=== PATIENT | female | born 1935 | race Caucasian/White ===

== ENCOUNTER 2016-08-05 21:25 | Inpatient (IN) | payer MEDICARE, OTHER ==
[~2016-08-05] VITALS: Ht 157.5 cm; Wt 58.1 kg
[2016-08-05 21:38] LABS: BASOPHILS % (AUTO) 0 % (0-10); EOSINOPHILS # (AUTO) 0.2 10^3/uL (0.0-0.3); EOSINOPHILS % (AUTO) 1 % (0-10); LYMPHOCYTES # (AUTO) 1.8 X 10^3 (1.0-4.0); LYMPHOCYTES % (AUTO) 14 % (12-44); MEAN CORPUSCULAR HEMOGLOBIN 28 PG (25-34); MEAN CORPUSCULAR HGB CONC 31 G/DL (32-36); MEAN CORPUSCULAR VOLUME 89 FL (80-99); MEAN PLATELET VOLUME 9.2 FL (7.4-10.4); MONOCYTES # (AUTO) 1.3 X 10^3 (0.0-1.0); MONOCYTES % (AUTO) 10 % (0-12); NEUTROPHILS # (AUTO) 9.2 X 10^3 (1.8-7.8); NEUTROPHILS % (AUTO) 74 % (42-75); PLATELET COUNT 367 10^3/uL (130-400); RED BLOOD COUNT 3.44 10^6/uL (4.35-5.85); RED CELL DISTRIBUTION WIDTH 16.9 % (10.0-14.5); WHITE BLOOD COUNT 12.5 10^3/uL (4.3-11.0)
[2016-08-05] MEDS ORDERED: TRAM50TA2 PO (21:44)
[2016-08-05 21:48] LABS: INR 1.1 (0.8-1.4); PROTHROMBIN TIME PATIENT 14.3 SEC (12.2-14.7)
[2016-08-05 21:56] LABS: ALANINE AMINOTRANSFERASE 7 U/L (0-55); ALBUMIN 2.8 G/DL (3.2-4.5); ANION GAP 8 MMOL/L (5-14); ASPARTATE AMINO TRANSFERASE 19 U/L (5-34); BILIRUBIN,TOTAL 0.5 MG/DL (0.1-1.0); BLOOD UREA NITROGEN 15 MG/DL (7-18); BUN/CREATININE RATIO 24; CALCIUM 8.4 MG/DL (8.5-10.1); CARBON DIOXIDE 25 MMOL/L (21-32); CHLORIDE 102 MMOL/L (98-107); CREATININE SERUM 0.62 MG/DL (0.60-1.30); GFR ESTIMATED > 60; GLUCOSE 98 MG/DL (70-105); POTASSIUM 4.1 MMOL/L (3.6-5.0); SODIUM 135 MMOL/L (135-145); TOTAL PROTEIN 5.2 G/DL (6.4-8.2)
--- NOTE | 2016-08-05 22:00 | ED Lower Extremity ---
General Chief Complaint: Lower Extremity Stated Complaint: FALL Nursing Triage Note: pt reports she was standing and took a wrong step and felt something pop in her l hip. pt reports staff helped lower her to the floor and denies falling or any other injury. Nursing Sepsis Screen: No Definite Risk Source: patient, EMS History of Present Illness Time seen by provider: 21:24 Initial Comments PT ARRIVES VIA EMS FROM [facility] PT STATES SHE WAS STANDING AND STARTED TO STEP AND FELT HER LEFT HIP POP--DID NOT FALL OR HAVE ANY TRAUMA OF ANY KIND, AND WAS ASSISTED TO THE FLOOR BY STAFF. PT HAS HAD CHRONIC PROBLEMS WITH LEFT HIP "BURSITIS", AND HAS HAD SEVERAL STEROID SHOTS IN THIS HIP--LAST ONE WAS 4 MONTHS AGO PT HAS PERIPHERAL NEUROPATHY WELL--STATES SHE IS NOT DIABETIC. PT RECENTLY HAD CAST REMOVED FROM RIGHT FOREARM AFTER A FRACTURE--WAS SEEN BY DR. LEON AT [facility] GAVE FENTANYL 50 MCG IM IN LEFT UPPER ARM. PCP: CALEB GARZA MO--DR. PIÑA IS HER PHYSICIAN AT [facility] Allergies and Home Medications Allergies Coded Allergies: strawberry (Verified Allergy, Unknown, 08/05/16) Home Medications Tramadol HCl 50 Mg Tablet, 50 MG PO, (Reported) Constitutional: no symptoms reported Respiratory: no symptoms reported Cardiovascular: no symptoms reported Gastrointestinal: no symptoms reported Genitourinary: no symptoms reported Musculoskeletal: see HPI Skin: no symptoms reported Psychiatric/Neurological: Pre-Existing Deficit (NEUROPATHY IN FEET) Past Kozjwsk-Ijtryf-Qjooin Hx Patient Social History Alcohol Use: Denies Use Recreational Drug Use: No Smoking Status: Former Smoker Type Used: Cigarettes 2nd Hand Smoke Exposure: No Recent Foreign Travel: No Contact w/Someone Who Travel: No Recent Infectious Disease Expo: No Recent Hopitalizations: No Immunizations Up To Date Date of Pneumonia Vaccine: Feb 18, 2016 Date of Influenza Vaccine: Feb 18, 2016 Seasonal Allergies Seasonal Allergies: No Surgeries HX Surgeries: Yes (LEFT LUNG BX/ RESECTION ) Surgeries: Appendectomy, Gallbladder, Hysterectomy Respiratory Hx Respiratory Disorders: Yes (LEFT LUNG CANCER--S/P SURGERY ONLY. 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 LEON AT [facility] AND BY NEUROSURGEON FOR COMPRESSION FRACTURE IN SPINE. ) Musculoskeletal Disorders: Osteoporosis, Arthritis, Fractures Endocrine Hx Endocrine Disorders: Yes Endocrine Disorders: Hypothyroidsim HEENT HX ENT Disorders: No Cancer Hx Cancer: Yes (LEFT LUNG CANCER-S/P SURGERY ONLY, NO CHEMO OR RADIATION--SEES ONCOLOGY AT [facility]) Cancer: Lung Psychosocial Hx Psychiatric Problems: No Integumentary HX Skin/Integumentary Disorder: No Blood Transfusions Hx Blood Disorders: No Physical Exam Vital Signs Vital Sign - Last 12Hours 08/05/16 21:30 Temp 97.4 Pulse 85 Resp 18 B/P (MAP) 138/72 Pulse Ox 95 O2 Delivery Nasal Cannula O2 Flow Rate 2.00 Capillary Refill : Less Than 3 Seconds General Appearance: no apparent distress, thin HEENT: PERRL/EOMI Neck: non-tender, full range of motion, supple, normal inspection Cardiovascular: regular rate, rhythm, no edema, no JVD, no murmur Respiratory: chest non-tender, normal breath sounds, no respiratory distress, no accessory muscle use Gastrointestinal: normal bowel sounds, non tender, soft Back: no CVA tenderness, no vertebral tenderness Hips: left hip bone tenderness, left hip other (LEFT LEG SHORTENED AND EXTERNALLY ROTATED. ) Legs: left leg other ( ABOVE) Knees: left knee normal inspection Ankles: left ankle normal inspection Feet: left foot normal inspection, left foot other (PULSES INTACT. SENSATION IS NORMAL BASELINE, PER PT--NUEROPATHY. ) Neurologic/Tendon: normal motor functions, normal tendon functions, other ( NEUROPATHY TO FEET BILATERALLY) Neurologic/Psychiatric: bead wire taper II-XII nml as tested, alert, normal mood/affect, oriented x 3 Skin: normal color, warm/dry Progress/Results/Core Measures Results/Orders Lab Results Laboratory Tests Test 08/05/16 21:30 Range/Units White Blood Count 12.5 H 4.3-11.0 10^3/uL Red Blood Count 3.44 L 4.35-5.85 10^6/uL Hemoglobin 9.6 L 11.5-16.0 G/DL Hematocrit 31 L 35-52 % Mean Corpuscular Volume 89 80-99 FL Mean Corpuscular Hemoglobin 28 25-34 PG Mean Corpuscular Hemoglobin Concent 31 L 32-36 G/DL Red Cell Distribution Width 16.9 H 10.0-14.5 % Platelet Count 367 130-400 10^3/uL Mean Platelet Volume 9.2 7.4-10.4 FL Neutrophils (%) (Auto) 74 42-75 % Lymphocytes (%) (Auto) 14 12-44 % Monocytes (%) (Auto) 10 0-12 % Eosinophils (%) (Auto) 1 0-10 % Basophils (%) (Auto) 0 0-10 % Neutrophils # (Auto) 9.2 H 1.8-7.8 X 10^3 Lymphocytes # (Auto) 1.8 1.0-4.0 X 10^3 Monocytes # (Auto) 1.3 H 0.0-1.0 X 10^3 Eosinophils # (Auto) 0.2 0.0-0.3 10^3/uL Basophils # (Auto) 0.0 0.0-0.1 10^3/uL Prothrombin Time 14.3 12.2-14.7 SEC INR Comment 1.1 0.8-1.4 Activated Partial Thromboplast Time 33 24-35 SEC Sodium Level 135 135-145 MMOL/L Potassium Level 4.1 3.6-5.0 MMOL/L Chloride Level 102 98-107 MMOL/L Carbon Dioxide Level 25 21-32 MMOL/L Anion Gap 8 5-14 MMOL/L Blood Urea Nitrogen 15 7-18 MG/DL Creatinine 0.62 0.60-1.30 MG/DL Estimat Glomerular Filtration Rate > 60 BUN/Creatinine Ratio 24 Glucose Level 98 70-105 MG/DL Calcium Level 8.4 L 8.5-10.1 MG/DL Total Bilirubin 0.5 0.1-1.0 MG/DL Aspartate Amino Transf (AST/SGOT) 19 5-34 U/L Alanine Aminotransferase (ALT/SGPT) 7 0-55 U/L Alkaline Phosphatase 260 H 40-136 U/L Total Protein 5.2 L 6.4-8.2 G/DL Albumin 2.8 L 3.2-4.5 G/DL My Orders Orders - BEKA MYERS DO Saline Lock/Iv-Start (08/05/16 21:28) Cbc With Automated Diff (08/05/16 21:28) Comprehensive Metabolic Panel (08/05/16 21:28) Protime With Inr (08/05/16 21:28) Partial Thromboplastin Time (08/05/16 21:28) Chest 1 View, Ap/Pa Only (08/05/16 21:28) Pelvis (08/05/16 21:28) Hip, Left, 2 Views (08/05/16 21:28) Catheter(Urinary) Insert & Ass 03,15 (08/05/16 22:15) Fentanyl Injection (Sublimaze Injection (08/05/16 22:15) Saline Lock/Iv-Start (08/05/16 22:15) Ns Iv 1000 Ml (Sodium Chloride 0.9%) (08/05/16 22:15) Medications Given in ED Current Medications Medications Dose Ordered Sig/Martin Route Start Time Stop Time Status Last Admin Dose Admin Sodium Chloride 1,000 ml @ 0 mls/hr Q0M ONCE IV 08/05/16 22:15 08/05/16 22:17 DC 08/05/16 22:26 0 MLS/HR Vital Signs/I&O Vital Sign - Last 12Hours 08/05/16 21:30 Temp 97.4 Pulse 85 Resp 18 B/P (MAP) 138/72 Pulse Ox 95 O2 Delivery Nasal Cannula O2 Flow Rate 2.00 Blood Pressure Mean: 94 Progress Note : Progress Note NO DETERIORATION IN PT'S CONDITION DURING ER STAY PT WANTS TO STAY HERE, OPPOSED TO BEING TRANSFERRED TO [facility], WHERE SHE HAS HAD RECENT ORTHOPEDIC / NEUROSURGERY SERVICES AND OTHER SPECIALTY SERVICES Diagnostic Imaging Comments XRAYS LEFT HIP AND PELVIS--SUB-TROCHANTERIC FX WITH SEVERE DEGENERATIVE CHANGES OF FEMORAL HEAD. CXR--NO ACUTE PROCESS, Reviewed: Reviewed by Me Departure Communication Progress Notes 2203--SPOKE WITH DR. MOON, HE WILL REVIEW FILMS AND CALL ME BACK 2224--DR. MOON CALLED BACK. HE WILL TAKE PT TO SURGERY TOMORROW. 2232--SPOKE WITH DR. ESCOBAR, HOSPITALIST, FOR CONSULT/CO-MANAGEMENT Impression Impression: Primary Impression: Closed subtrochanteric fracture of left femur Additional Impressions: Lung cancer Peripheral neuropathy Ischemic heart disease Anemia Pathological fracture Disposition: ADMITTED INPATIENT Condition: Stable Decision to Admit Reason: Admit from ER (General) Decision to Admit/Date: Aug 05, 2016 Time/Decision to Admit Time: 22:30 Departure-Patient Inst. Referrals: VIRGILIO PIÑA MD (PCP/Family) Primary Care Physician BEKA MYERS DO Aug 05, 2016 21:59
[2016-08-05] MEDS ORDERED: NS IV 1000 ML 1,000 ML IV ONE (22:15)
[2016-08-05] MEDS ORDERED: fentaNYL INJECTION 100 MCG/2 ML AMP IVP STA (22:15)
[2016-08-05] MEDS ORDERED: morphine INJ 10 MG/ML 1ML (SYR OR VIAL) IVP STA (22:50)
[2016-08-06] VITALS (8 sets, daily range): BP systolic 78–156; BP diastolic 53–85
[2016-08-06] MEDS ORDERED: fentaNYL INJECTION 100 MCG/2 ML AMP IVP PRN (00:15)
[2016-08-06] MEDS ORDERED: D5 1/2 NS 1000 ML IV SOLUTION 1,000 ML IV ONE (00:17)
[2016-08-06] MEDS: D5 1/2 NS 1000 ML IV SOLUTION 1,000 ML IV SCH ×3 (00:23→20:30)
[2016-08-06] MEDS: fentaNYL INJECTION 100 MCG/2 ML AMP IVP PRN ×4 (00:24→14:59)
[2016-08-06] MEDS ORDERED: morphine INJ 4 MG/ML 1 ML (VIAL/SYRINGE) IV PRN (00:30)
[2016-08-06 05:47] LABS: BASOPHILS % (AUTO) 0 % (0-10); EOSINOPHILS % (AUTO) 1 % (0-10); LYMPHOCYTES # (AUTO) 1.5 X 10^3 (1.0-4.0); LYMPHOCYTES % (AUTO) 35 % (12-44); MEAN CORPUSCULAR HEMOGLOBIN 28 PG (25-34); MEAN CORPUSCULAR HGB CONC 31 G/DL (32-36); MEAN CORPUSCULAR VOLUME 90 FL (80-99); MEAN PLATELET VOLUME 10.7 FL (7.4-10.4); MONOCYTES # (AUTO) 0.3 X 10^3 (0.0-1.0); MONOCYTES % (AUTO) 6 % (0-12); NEUTROPHILS # (AUTO) 2.5 X 10^3 (1.8-7.8); NEUTROPHILS % (AUTO) 58 % (42-75); RED BLOOD COUNT 3.49 10^6/uL (4.35-5.85); RED CELL DISTRIBUTION WIDTH 16.7 % (10.0-14.5); WHITE BLOOD COUNT 4.2 10^3/uL (4.3-11.0)
[2016-08-06 05:53] LABS: PLATELET COUNT 117 10^3/uL (130-400)
[2016-08-06 06:07] LABS: ALANINE AMINOTRANSFERASE 8 U/L (0-55); ALBUMIN 2.6 G/DL (3.2-4.5); ANION GAP 10 MMOL/L (5-14); ASPARTATE AMINO TRANSFERASE 24 U/L (5-34); BILIRUBIN,TOTAL 0.5 MG/DL (0.1-1.0); BLOOD UREA NITROGEN 11 MG/DL (7-18); BUN/CREATININE RATIO 20; CALCIUM 7.6 MG/DL (8.5-10.1); CARBON DIOXIDE 20 MMOL/L (21-32); CHLORIDE 106 MMOL/L (98-107); CREATININE SERUM 0.54 MG/DL (0.60-1.30); GFR ESTIMATED > 60; GLUCOSE 121 MG/DL (70-105); SODIUM 136 MMOL/L (135-145); TOTAL PROTEIN 4.7 G/DL (6.4-8.2)
--- NOTE | 2016-08-06 07:43 | Diagnostic Imaging Report ---
INDICATION: Fell with left hip pain. FINDINGS: Two views of the left hip demonstrate a subtrochanteric fracture of the left hip with severe degenerative changes of the joint. IMPRESSION: There is a subtrochanteric fracture of left hip with severe degenerative changes of the joint space. Dictated by: Dictated on workstation # [id number]
--- NOTE | 2016-08-06 07:45 | Diagnostic Imaging Report ---
INDICATION: Fell, complains of left hip pain. COMPARISON STUDIES: None. FINDINGS: Frontal view of the chest demonstrates surgical clips overlying the left hilar region. There is some blunting of left costophrenic angle most likely due to small pleural effusion. This could also be due to postoperative scarring. The heart size and vascularity are normal. IMPRESSION: There is blunting of left costophrenic angle which could be due to small pleural effusion versus postoperative scarring. Dictated by: Dictated on workstation # [id number]
--- NOTE | 2016-08-06 07:47 | Diagnostic Imaging Report ---
INDICATION: Fell, left hip pain. FINDINGS: AP view of the pelvis demonstrates a subtrochanteric fracture of the left hip with severe degenerative changes of the joint space. Previous laminectomy changes present at L4 and L5. No diastases seen. IMPRESSION: There is a subtrochanteric fracture of the left hip with severe degenerative changes. Dictated by: Dictated on workstation # [id number]
[2016-08-06] MEDS ORDERED: NFBIOT1000 PO (09:56)
[2016-08-06] MEDS ORDERED: BETA1TAB12 PO (09:56)
[2016-08-06] MEDS ORDERED: GARL10002 PO (09:56)
[2016-08-06] MEDS ORDERED: DOCU-143 PO (09:56)
[2016-08-06] MEDS ORDERED: ESOM20CA PO (09:56)
[2016-08-06] MEDS ORDERED: ASPI-983 PO (09:56)
[2016-08-06] MEDS ORDERED: LEVO50TA6 PO (09:56)
[2016-08-06] MEDS ORDERED: CLOP75TA69 PO (09:56)
[2016-08-06] MEDS ORDERED: VITA400C60 PO (09:56)
[2016-08-06] MEDS ORDERED: SIMV80TA3 PO (09:56)
[2016-08-06] MEDS ORDERED: CHOL10003 PO (09:56)
[2016-08-06] MEDS ORDERED: LIDO700A6 TP (09:56)
[2016-08-06] MEDS ORDERED: VERA240T98 PO (09:56)
[2016-08-06] MEDS ORDERED: ENAL10TA PO (09:56)
[2016-08-06] MEDS ORDERED: DICL100G18 TP ×2 (09:56→10:00)
[2016-08-06] MEDS ORDERED: HYDR-3731 PO (09:56)
[2016-08-06] MEDS ORDERED: MAG30ORA2 PO (09:56)
[2016-08-06] MEDS ORDERED: TRAM50TA2 PO (09:56)
[2016-08-06] MEDS ORDERED: BISA10SU6 RC (09:56)
[2016-08-06] MEDS ORDERED: OXYB10TA PO (09:56)
--- NOTE | 2016-08-06 10:46 | Consultation-Hospitalist ---
HPI History of Present Illness: HPI/Chief Complaint CC: Left hip fracture HPI: This is a 80yo[address] pt of Dr[address] Jerzy Cote in [place] but now Dr. Jeffers since she has been at [facility] that presented to ER by ambulance after a fall and sustained left hip fracture but she heard her hip snap before the fall which makes this suspicious for lung cancer mets or at the very least osteoporosis. Pt has hx of lung CA and CAD so it is concerning that this could be related to CA process. Patient Interview: Pt states that she moved to [facility] in the middle of May, but states that she has not been there an entire month yet. Pt states that she previously broke her right arm, and took the cast off yesterday in [place]. Upon returning to [place], pt states that her hip popped and she fell. Pt states that she had CA in left lung, and a section was removed in March of 2015. Oncologist is Dr. Fairbanks and she sees him every three months. Pt denies smoking, and quit 28 years ago. 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 Pt's son lives in [place]. Physical exam stable. Scribed by Altaf Weinberg under the direct supervision of Dr. Meyer. Source: patient Exam Limitations: no limitations Date Seen 08/06/16 Attending Physician Maximo Saha John D MD Referring Physician Date of Admission Aug 05, 2016 at 22:30 Home Medications & Allergies Home Medications Reviewed patient Home Medication Reconciliation Form Allergies Allergies Coded Allergies strawberry (Verified Allergy, Unknown, 08/05/16) Past Agfpckk-Lggzya-Jfkajh Hx Patient Social History Marrital Status: Employed/Student: retired Alcohol Use: Denies Use Recreational Drug Use: No Smoking Status: Never a Smoker Type Used: Cigarettes 2nd Hand Smoke Exposure: No Physical Abuse Screen: No Sexual Abuse: No Recent Foreign Travel: No Contact w/other who traveled: No Recent Hopitalizations: No Recent Infectious Disease Expo: No Immunizations Up To Date Date of Pneumonia Vaccine: Feb 18, 2016 Date of Influenza Vaccine: Feb 18, 2016 Seasonal Allergies Seasonal Allergies: No Surgeries HX Surgeries: Yes (LEFT LUNG BX/ RESECTION ) Surgeries: Appendectomy, Gallbladder, Hysterectomy Respiratory Hx Respiratory Disorders: Yes (LEFT LUNG CANCER--S/P SURGERY ONLY. ) Respiratory Disorders: COPD, Pneumonia Cardiovascular Hx Cardiovascular Disorders: Yes (chronic ischemic heart disease) Cardiac Disorders: Coronary Artery Disease, High Cholesterol, Hypertension Neurological Hx Neurological Disorders: Yes Neurological Disorders: Neuropathy, Stroke, TIA Reproductive System : No Genitourinary Hx Genitourinary Disorders: Yes (over active bladder/incontinence) Genitourinary Disorders: Kidney Stones Gastrointestinal Hx Gastrointestinal Disorders: Yes Gastrointestinal Disorders: Gastroesophageal Reflux, Chronic Constipation Musculoskeletal Hx Musculoskeletal Disorders: Yes ("BURSITIS" LEFT HIP; COMPRESSION FRACTURES IN SPINE; GENERALIZED WEAKNESS; RIGHT RADIUS FRACTURE--FOLLOWED BY DR. LEON AT [facility] AND BY NEUROSURGEON FOR COMPRESSION FRACTURE IN SPINE. ) Musculoskeletal Disorders: Osteoporosis, Arthritis, Fractures Endocrine Hx Endocrine Disorders: Yes Endocrine Disorders: Hypothyroidsim HEENT HX ENT Disorders: No HEENT Disorders: Cataract Cancer Hx Cancer: Yes (LEFT LUNG CANCER-S/P SURGERY ONLY, NO CHEMO OR RADIATION--[facility] Cancer: Lung Psychosocial Hx Psychiatric Problems: No Integumentary HX Skin/Integumentary Disorder: No Blood Transfusions Hx Blood Disorders: No Family Medical History Family Hx: Cataracts 19 MOTHER Diabetes mellitus 19 FATHER FH: CHF (congestive heart failure) 19 FATHER 19 MOTHER FH: COPD (chronic obstructive pulmonary disease) 19 FATHER 19 MOTHER Review of Systems Constitutional: see HPI EENTM: no symptoms reported Respiratory: no symptoms reported Cardiovascular: no symptoms reported Gastrointestinal: no symptoms reported Genitourinary: no symptoms reported Musculoskeletal: joint pain Skin: no symptoms reported Psychiatric/Neurological: No Symptoms Reported All Other Systems Reviewed Negative Unless Noted: Yes Physical Exam Physical Exam Vital Signs Vital Sign - Last 12Hours 08/05/16 21:30 Temp 97.4 Pulse 85 Resp 18 B/P (MAP) 138/72 Pulse Ox 95 O2 Delivery Nasal Cannula O2 Flow Rate 2.00 Capillary Refill : Less Than 3 SecondsLess Than 3 Seconds General Appearance: No Apparent Distress, WD/WN, Chronically ill, Thin, Other ( frail, pale) Eyes: Bilateral Eye Normal Inspection, Bilateral Eye PERRL HEENT: PERRL/EOMI, Normal ENT Inspection, Pharynx Normal Neck: Full Range of Motion, Normal Inspection, Non Tender, Supple, Carotid Bruit Respiratory: Chest Non Tender, Lungs Clear, Normal Breath Sounds, No Accessory Muscle Use, No Respiratory Distress, Decreased Breath Sounds Cardiovascular: Regular Rate, Rhythm, No Edema, No Gallop, No JVD, No Murmur, Normal Peripheral Pulses Gastrointestinal: Normal Bowel Sounds, No Organomegaly, No Pulsatile Mass, Non Tender, Soft Back: Normal Inspection, No CVA Tenderness, No Vertebral Tenderness Extremity: Normal Capillary Refill, Normal Inspection, Non Tender, No Calf Tenderness, No Pedal Edema Neurologic/Psychiatric: Alert, Oriented x3, No Motor/Sensory Deficits, Normal Mood/Affect Skin: Normal Color, Warm/Dry Lymphatic: No Adenopathy Results Results/Procedures Lab Laboratory Tests 08/05/16 21:30 08/06/16 05:40 Assessment/Plan Admission Diagnosis Assessment: Status post fall with sustained hip fracture need of repair today History of left lung cancer managed by oncology in [place] every 3 months in remission after lobectomy in 2014 Overall debility since right arm fracture Oxygen required COPD Previous smoker TIA 03/26 on Plavix Assessment and Plan Plan: Dr. Saha consult for repair. Dr. Yuen consult Dr. Bonilla consult SCDs for DVT prophylaxis Check labs in a.m. Incentive spirometer Nebulizer treatments Oxygen supplementation Clinical Quality Measures DVT/VTE Risk/Contraindication: Risk Factor Score Per Nursin RFS Level Per Nursing on Admit: 4+=Very High ROBIN MEYER DO Aug 06, 2016 10:46
--- NOTE | 2016-08-06 10:54 | Occ Therapy Progress Note ---
Therapy Progress Note Order received for OT eval and treat. Chart review completed. Pt admitted with left hip fracture. Will be going to surgery today. Will require new orders to initiate therapy post surgery. Discussed with ZA. SINCERE DELGADO OT Aug 06, 2016 10:54
[2016-08-06] MEDS ORDERED: BISACODYL 10 MG SUPP (DULCOLAX) RC PRN (11:30)
[2016-08-06] MEDS ORDERED: ANTACID SUSP 30 ML UDC (MYLANTA) PO PRN (11:30)
[2016-08-06] MEDS: DICLOFENAC 1% GEL 100 GM (VOLTAREN) TUBE TP SCH ×2 (12:14→21:00)
[2016-08-06] MEDS: RT-ALBUTEROL/IPRATROPIUM 3 ML (DUONEB) VIAL INH SCH ×3 (14:37→20:09)
[2016-08-06] MEDS ORDERED: morphine INJ 10 MG/ML 1ML (SYR OR VIAL) ONE (15:13)
[2016-08-06] MEDS ORDERED: ONDANSETRON 4 MG/2 ML (SDV) Z0FRAN ONE ×2 (15:14→16:44)
[2016-08-06] MEDS ORDERED: fentaNYL INJECTION 100 MCG/2 ML AMP ONE ×2 (15:14→16:45)
[2016-08-06] MEDS ORDERED: morphine INJ 10 MG/ML 1ML (SYR OR VIAL) IV PRN (15:30)
[2016-08-06] MEDS ORDERED: PROMETHAZINE INJ 25 MG/ML (PHENERGAN) AMP IV PRN (15:30)
[2016-08-06] MEDS ORDERED: ONDANSETRON 4 MG/2 ML (SDV) Z0FRAN IV PRN (15:30)
[2016-08-06] MEDS ORDERED: FAMOTIDINE 20MG/2ML IV (PEPCID) IV NR (15:30)
--- NOTE | 2016-08-06 15:54 | Consultation-Cardiology ---
HPI-Cardiology Cardiology Consultation: Date of Consultation 08/06/16 Date of Admission 08-06-16 Attending Physician Maximo Saha DO Admitting Physician Murtaza Jeffers MD Consulting Physician Deena Bonilla MD HPI: Chief Complaint: Pre-op Eval Ms. Ocasio is a 80 year old female who has been admitted to [facility] from [facility] where she resides. She states she was getting up to use the commode earlier today, when she turned to sit she felt her left hip pop. She reports the care provider with her at the time lowered her to the floor. She denies any c/o CP, SOB, palpitations, syncope, near syncope or LE edema. She states she quit smoking 28 years ago. She is reporting s/o left hip discomfort. No family is at the bedside at the time of this assessment/ Review of Systems-Cardiology Review of Systems Constitutional: As described under HPI Eyes: No blurred vision, No drainage, No pain, No vision change Ears/Nose/Throat: No ear discharge, No ear pain, No nasal drainage, No ulcerations Respiratory: As described under HPI Cardiovascular: As described under HPI Gastrointestinal: No constipation, No diarrhea, No nausea, No vomiting, No stool coloration changes Genitourinary: No dysuria, No discharge, No frequency, No hematuria, No urgency Musculoskeletal: other (Left hip pain) Skin: No rash, No skin related problems, No ulcerations Psychiatric/Neurological: No anxiety, No depression, No focal weakness, No seizure, No syncope Hematologic: No bleeding abnormalities All Other Systems Reviewed Negative Unless Noted: Yes PGU-Oazoxu-Favjhb Hx Patient Social History Marrital Status: Employed/Student: retired Alcohol Use: Denies Use Recreational Drug Use: No Smoking Status: Never a Smoker Type Used: Cigarettes 2nd Hand Smoke Exposure: No Recent Foreign Travel: No Recent Infectious Disease Expo: No Physical Abuse Screen: No Sexual Abuse: No Immunizations Up To Date Date of Pneumonia Vaccine: Feb 18, 2016 Date of Influenza Vaccine: Feb 18, 2016 Past Medical History PMH As described under Assessment. Family Medical History Family Medical History: She reports her mother had CHF and her father had COPD. No reported h/o premature CAD or SCD. Family History: Cataracts 19 MOTHER Diabetes mellitus 19 FATHER FH: CHF (congestive heart failure) 19 FATHER 19 MOTHER FH: COPD (chronic obstructive pulmonary disease) 19 FATHER 19 MOTHER Allergies and Home Medications Allergies Coded Allergies: latex (Verified Allergy, Mild, RASH, 08/06/16) strawberry (Verified Allergy, Unknown, 08/05/16) Home Medications Aspirin 81 Mg Tablet.dr, 81 MG PO HS, (Reported) Beta-Carotene(A) W-C & E/Min 1 Each Tablet, 1 TAB PO HS, (Reported) Biotin 1,000 Mcg Tablet, 1,000 MCG PO HS, (Reported) Bisacodyl 10 Mg Supp.rect, 10 MG RC DAILY PRN for CONSTIPATION, (Reported) Cholecalciferol (Vitamin D3) 1,000 Unit Tablet, 1,000 UNIT PO HS, (Reported) Clopidogrel Bisulfate 75 Mg Tablet, 75 MG PO DAILY, (Reported) Diclofenac Sodium 100 Gm Gel..gram., TP TID, (Reported) LOWER EXTREMETIES: 4G 3X DAILY MAX 16G PER JOINT PER DAY UPPER EXTREMETIES: 2G 3X DAILY MAX 8G PER JOINT PER DAY TOTAL BODY DOSE MAX 32G/DAY Docusate Sodium 100 Mg Capsule, 100 MG PO BID, (Reported) Enalapril Maleate 10 Mg Tablet, 10 MG PO DAILY, (Reported) Esomeprazole Magnesium 20 Mg Capsule.dr, 20 MG PO BID, (Reported) Garlic 1,000 Mg Capsule, 1,000 MG PO HS, (Reported) Hydrocodone/Acetaminophen 1 Each Tablet, 1 TAB PO Q6H PRN for PAIN, (Reported) Levothyroxine Sodium 50 Mcg Tablet, 50 MCG PO DAILY, (Reported) Lidocaine 700 Mg Adh..patch, 3 PATCH TP DAILY, (Reported) APPLY TO LEFT SHOULDER, RIGHT SHOULDER, AND T5-T12/THORACIC SPINE REMOVE AT 1930 Mag Hydrox/Al Hydrox/Simeth 30 Ml Oral.susp, 15 ML PO Q4H PRN for INDIGESTION, ( Reported) Oxybutynin Chloride 10 Mg Tab.er.24, 20 MG PO DAILY, (Reported) TAKES 2 (10MG) TABLETS Simvastatin 80 Mg Tablet, 80 MG PO HS, (Reported) Tramadol HCl 50 Mg Tablet, 50 MG PO Q12H PRN for PAIN, (Reported) Verapamil HCl 240 Mg Tablet.er, 240 MG PO BID, (Reported) Vitamin E Acetate 400 Unit Capsule, 400 UNIT PO HS, (Reported) Physical Exam-Cardiology Physical Exam Vital Signs/I&O Vital Sign - Last 12Hours 08/06/16 08/06/16 08/06/16 08/06/16 08:00 09:00 12:00 15:05 Temp 98.4 98.0 Pulse 68 84 Resp 18 16 B/P (MAP) 131/77 156/85 Pulse Ox 95 91 91 O2 Delivery Nasal Cannula Nasal Cannula Nasal Cannula O2 Flow Rate 2.00 2.00 2.00 2.00 08/06/16 16:00 Temp 97.9 Pulse 89 Resp 18 B/P (MAP) 149/82 Pulse Ox 99 O2 Delivery Nasal Cannula O2 Flow Rate 2.00 Intake and Output 08/06/16 00:00 Intake Total 1000 ml Balance 1000 ml Capillary Refill : Less Than 3 SecondsLess Than 3 Seconds Constitutional: AAO x 3 HEENT: PERRL, No discharge, hearing is well preserved, oral hygience is good, No ulceration, No xanthelasmas are seen Neck: No carotid bruit, carotid pulses are 2 + bilaterally Respiratory: No accessory muscle use, No respiratory distress, chest expansion is symmetric, lungs clear to auscultation Cardiovascular: regular rate-rhythm, No JVD, S1 and S2 Gastrointestinal: No tender, soft, round, audible bowel sounds, No spleenomegaly Rectal: deferred Extremities: No clubbing, No cyanosis, No significant edema Neurologic/Psychiatric: alert, oriented x 3, grossly intact (Left leg was not manipulated d/t hip fracture) Skin: No rash, No ulcerations Data Review Labs Laboratory Tests 08/05/16 21:30: White Blood Count 12.5H, Red Blood Count 3.44L, Hemoglobin 9.6L, Hematocrit 31L , Mean Corpuscular Volume 89, Mean Corpuscular Hemoglobin 28, Mean Corpuscular Hemoglobin Concent 31L, Red Cell Distribution Width 16.9H, Platelet Count 367, Mean Platelet Volume 9.2, Neutrophils (%) (Auto) 74, Lymphocytes (%) (Auto) 14, Monocytes (%) (Auto) 10, Eosinophils (%) (Auto) 1, Basophils (%) (Auto) 0, Neutrophils # (Auto) 9.2H, Lymphocytes # (Auto) 1.8, Monocytes # (Auto) 1.3H, Eosinophils # (Auto) 0.2, Basophils # (Auto) 0.0, Prothrombin Time 14.3, INR Comment 1.1, Activated Partial Thromboplast Time 33, Sodium Level 135, Potassium Level 4.1, Chloride Level 102, Carbon Dioxide Level 25, Anion Gap 8, Blood Urea Nitrogen 15, Creatinine 0.62, Estimat Glomerular Filtration Rate > 60 , BUN/Creatinine Ratio 24, Glucose Level 98, Calcium Level 8.4L, Total Bilirubin 0.5, Aspartate Amino Transf (AST/SGOT) 19, Alanine Aminotransferase ( ALT/SGPT) 7, Alkaline Phosphatase 260H, Total Protein 5.2L, Albumin 2.8L 08/06/16 05:40: White Blood Count 4.2L, Red Blood Count 3.49L, Hemoglobin 9.8L, Hematocrit 31L, Mean Corpuscular Volume 90, Mean Corpuscular Hemoglobin 28, Mean Corpuscular Hemoglobin Concent 31L, Red Cell Distribution Width 16.7H, Platelet Count 117L, Mean Platelet Volume 10.7H, Neutrophils (%) (Auto) 58, Lymphocytes (%) (Auto) 35 , Monocytes (%) (Auto) 6, Eosinophils (%) (Auto) 1, Basophils (%) (Auto) 0, Neutrophils # (Auto) 2.5, Lymphocytes # (Auto) 1.5, Monocytes # (Auto) 0.3, Eosinophils # (Auto) 0.0, Basophils # (Auto) 0.0, Sodium Level 136, Potassium Level 5.0, Chloride Level 106, Carbon Dioxide Level 20L, Anion Gap 10, Blood Urea Nitrogen 11, Creatinine 0.54L, Estimat Glomerular Filtration Rate > 60, BUN /Creatinine Ratio 20, Glucose Level 121H, Calcium Level 7.6L, Total Bilirubin 0.5, Aspartate Amino Transf (AST/SGOT) 24, Alanine Aminotransferase (ALT/SGPT) 8 , Alkaline Phosphatase 270H, Total Protein 4.7L, Albumin 2.6L Radiology NAME: ARMANDO OCASIO [facility] REC#: [id number] PT STATUS: ADM IN : 1935 PHYSICIAN: BEKA MYERS DO ADMIT DATE: 08/05/16 Signed Date of Exam: 08/05/16 CHEST 1 VIEW, AP/PA ONLY INDICATION: Fell, complains of left hip pain. COMPARISON STUDIES: None. FINDINGS: Frontal view of the chest demonstrates surgical clips overlying the left hilar region. There is some blunting of left costophrenic angle most likely due to small pleural effusion. This could also be due to postoperative scarring. The heart size and vascularity are normal. IMPRESSION: There is blunting of left costophrenic angle which could be due to small pleural effusion versus postoperative scarring. Dictated by: Dictated on workstation # [id number] Dict: 08/06/16 0741 Trans: 08/06/16 1055 [place] [id number] Interpreted by: VERONICA HOWARD MD Electronically signed by:VERONICA HOWARD MD 08/06/16 1055 NAME: ARMANDO OCASIO [facility] REC#: [id number] PT STATUS: ADM IN : 1935 PHYSICIAN: BEKA MYERS DO ADMIT DATE: 08/05/16 Signed Date of Exam: 08/05/16 HIP, LEFT, 2 VIEWS INDICATION: Fell with left hip pain. FINDINGS: Two views of the left hip demonstrate a subtrochanteric fracture of the left hip with severe degenerative changes of the joint. IMPRESSION: There is a subtrochanteric fracture of left hip with severe degenerative changes of the joint space. Dictated by: Dictated on workstation # [id number] Dict: 08/06/16 0740 Trans: 08/06/16 1055 [facility] [id number] Interpreted by: VERONICA HOWARD MD Electronically signed by:VERONICA HOWARD MD 08/06/16 1055 A/P-Cardiology Assessment/Admission Diagnosis Spontaneous left hip fracture on 08-06-16 - awaiting surgery Reports h/o "mini-stroke" in March 2016 diagnosed in [place] - details unknown Hypertension HLP - statin tx Reports h/o left lung cancer which was treated with wedge resection at [facility] in [place], [place] in 2014 Previous h/o tobaccoism - quit 28 years ago per pt Hypothyroidism - replacement tx Dementia Discussion and Recomendations Pre-op evaluation prior to undergoing left hip repair following spontaneous fracture. There is no family at the bedside at this time. She reports she had lung cancer which was treated with a wedge resection at [facility] in [place], [place]. Chart review shows "ischemic heart disease", however patient does not report any cardiac issues other than high blood pressure and high cholesterol. We will try to obtain records from [facility]. EKG today. Further recommendations will be based on her hospital course. Surgical risk we be determined per Dr. Bonilla after he has evaluated her. We would like to thank the Hospitalist service for this consult. This consult is being scribed by Nunu Thompson APRN on behalf of Dr. Bonilla after discussion regarding plan of care. Clinical Quality Measures DVT/VTE Risk/Contraindication: Risk Factor Score Per Nursin RFS Level Per Nursing on Admit: 4+=Very High Physician Assessment Physician Assessment I came to see the patient shortly after her ECG had been completed, but Anesthesiology has already taken the patient and the ECG to the OR. I am unable to provide an opinion at this time. I did call Mark (the UNDERGROUND ROOF BOLTER on thd case) spoke with him personally, and offered my evaluation, but he is comfortable with their own eval and doesn't feel that cardiac eval is needed. PADDY THOMPSON Aug 06, 2016 15:54 DEENA BONILLA MD [facility] Aug 06, 2016 17:44
[2016-08-06] MEDS ORDERED: LIDOCAINE PF 2% 10 ML (XYLOCAINE) AMP ONE (16:45)
[2016-08-06] MEDS ORDERED: proPOfol 200 MG/20 ML (DIPRIVAN) VIAL IV ONE (16:45)
[2016-08-06] MEDS ORDERED: DEXAMETHASONE PF 10 MG/ML (DECADRON) VIAL ONE (16:45)
[2016-08-06] MEDS ORDERED: MIDAZOLAM 2 MG/2 ML (VERSED) VIAL ONE (16:45)
[2016-08-06] MEDS ORDERED: LACTATED RINGERS 1,000 ML IV ONE ×2 (16:50→19:05)
[2016-08-06] MEDS ORDERED: ONDANSETRON 4 MG/2 ML (SDV) Z0FRAN IVP PRN (17:30)
[2016-08-06] MEDS ORDERED: BISACODYL 10 MG SUPP (DULCOLAX) PR PRN (17:30)
[2016-08-06] MEDS ORDERED: PROMETHAZINE INJ 25 MG/ML (PHENERGAN) AMP IVP PRN (17:30)
[2016-08-06] MEDS ORDERED: ceFAZolin 2 GM/50 ML NS 50 ML IV SCH (17:30)
[2016-08-06] MEDS: LACTATED RINGERS 1,000 ML IV PRN ×2 (17:33→19:40)
[2016-08-06] MEDS ORDERED: ceFAZolin 2 GM/50 ML NS 50 ML IV NR (18:00)
[2016-08-06] MEDS ORDERED: NEO/POLY/BACI (NEOSPORIN) OPHTH OINT 3.5 GM ONE (18:02)
[2016-08-06] MEDS ORDERED: NEO/POLY/BAC (NEOSPORIN) OINT 15 GM TUBE ONE (18:03)
[2016-08-06] MEDS ORDERED: SEVOFLURANE (ULTANE) 15 ML INHAL SOLN ONE ×2 (19:05→19:16)
--- NOTE | 2016-08-06 19:27 | Progress Note-Post Operative ---
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
[2016-08-06 20:00] LABS: MEAN PLATELET VOLUME 9.8 FL (7.4-10.4); RED BLOOD COUNT 3.55 10^6/uL (4.35-5.85); RED CELL DISTRIBUTION WIDTH 17.4 % (10.0-14.5); WHITE BLOOD COUNT 28.4 10^3/uL (4.3-11.0)
[2016-08-06] MEDS: OXYBUTYNIN (DITROPAN) 5 MG TAB PO SCH ×2 (20:00→21:47)
[2016-08-06] MEDS: VITAMIN D3 1,000 UNITS (CHOLECALCIFEROL) TABLET PO SCH ×2 (20:00→21:47)
[2016-08-06] MEDS ORDERED: fentaNYL INJECTION 100 MCG/2 ML AMP IV PRN (20:00)
[2016-08-06] MEDS: SIMvastatin 40 MG (ZOCOR) TAB PO SCH ×2 (20:00→21:47)
[2016-08-06] MEDS: VERAPAMIL SR 240 MG (CALAN SR) TAB PO SCH (21:00)
[2016-08-06] MEDS ORDERED: DOCUSATE SODIUM 100 MG (COLACE) CAP PO SCH (21:00)
[2016-08-06] MEDS: KETOROLAC 15 MG/ML VIAL IVP PRN (21:03)
--- NOTE | 2016-08-06 22:24 | Diagnostic Imaging Report ---
Indication: ORIF of subtrochanteric fracture. Comparison: Left hip radiograph of 08/05/16 Findings and Impression: Multiple fluoroscopic images were obtained during gamma nail fixation of the proximal left femur. These demonstrate placement of a longstem gamma nail with distal interlocking screw. A total of 107 seconds seconds or fluoroscopy was utilized for this procedure performed by Dr. Saha. Please see operative report for complete details. Dictated by: Dictated on workstation # [id number]
[2016-08-07] VITALS (13 sets, daily range): BP systolic 101–154; BP diastolic 55–85
[2016-08-07] MEDS: D5 1/2 NS 1000 ML IV SOLUTION 1,000 ML IV SCH ×3 (02:45→18:54)
[2016-08-07] MEDS: ceFAZolin 2 GM/50 ML NS 50 ML IV SCH ×2 (02:45→13:34)
[2016-08-07] MEDS: KETOROLAC 15 MG/ML VIAL IVP PRN ×2 (03:25→09:26)
[2016-08-07 05:51] LABS: BASOPHILS % (AUTO) 0 % (0-10); EOSINOPHILS % (AUTO) 0 % (0-10); LYMPHOCYTES # (AUTO) 0.6 X 10^3 (1.0-4.0); LYMPHOCYTES % (AUTO) 4 % (12-44); MEAN CORPUSCULAR HEMOGLOBIN 28 PG (25-34); MEAN CORPUSCULAR HGB CONC 31 G/DL (32-36); MEAN CORPUSCULAR VOLUME 90 FL (80-99); MEAN PLATELET VOLUME 9.7 FL (7.4-10.4); MONOCYTES # (AUTO) 0.7 X 10^3 (0.0-1.0); MONOCYTES % (AUTO) 5 % (0-12); NEUTROPHILS # (AUTO) 13.3 X 10^3 (1.8-7.8); NEUTROPHILS % (AUTO) 91 % (42-75); PLATELET COUNT 279 10^3/uL (130-400); RED BLOOD COUNT 2.36 10^6/uL (4.35-5.85); WHITE BLOOD COUNT 14.6 10^3/uL (4.3-11.0)
[2016-08-07 06:00] LABS: INR 1.3 (0.8-1.4); PROTHROMBIN TIME PATIENT 16.2 SEC (12.2-14.7)
[2016-08-07 06:08] LABS: ALANINE AMINOTRANSFERASE 8 U/L (0-55); ANION GAP 7 MMOL/L (5-14); ASPARTATE AMINO TRANSFERASE 26 U/L (5-34); BILIRUBIN,TOTAL 0.3 MG/DL (0.1-1.0); BLOOD UREA NITROGEN 13 MG/DL (7-18); BUN/CREATININE RATIO 18; CALCIUM 7.4 MG/DL (8.5-10.1); CARBON DIOXIDE 21 MMOL/L (21-32); CHLORIDE 105 MMOL/L (98-107); CREATININE SERUM 0.73 MG/DL (0.60-1.30); GFR ESTIMATED > 60; GLUCOSE 244 MG/DL (70-105); POTASSIUM 4.4 MMOL/L (3.6-5.0); SODIUM 133 MMOL/L (135-145); TOTAL PROTEIN 3.8 G/DL (6.4-8.2)
[2016-08-07] MEDS: PANTOPRAZOLE 20 MG TABLET (PROTONIX) PO SCH ×3 (06:26→20:06)
--- NOTE | 2016-08-07 06:52 | Pulmonary Consultation ---
History of Present Illness History of Present Illness Date of Consultation 08/07/16 06:49 Date of Admission Reason for Visit: fall History of Present Illness 80yo with hx of lung cancer and [facility] s/p fall and sustained left hip fracture. I am consulted for pulmonary management. Allergies and Home Medications Allergies Coded Allergies: latex (Verified Allergy, Mild, RASH, 08/06/16) strawberry (Verified Allergy, Unknown, 08/05/16) Home Medications Aspirin 81 Mg Tablet.dr, 81 MG PO HS, (Reported) Beta-Carotene(A) W-C & E/Min 1 Each Tablet, 1 TAB PO HS, (Reported) Biotin 1,000 Mcg Tablet, 1,000 MCG PO HS, (Reported) Bisacodyl 10 Mg Supp.rect, 10 MG RC DAILY PRN for CONSTIPATION, (Reported) Cholecalciferol (Vitamin D3) 1,000 Unit Tablet, 1,000 UNIT PO HS, (Reported) Clopidogrel Bisulfate 75 Mg Tablet, 75 MG PO DAILY, (Reported) Diclofenac Sodium 100 Gm Gel..gram., TP TID, (Reported) LOWER EXTREMETIES: 4G 3X DAILY MAX 16G PER JOINT PER DAY UPPER EXTREMETIES: 2G 3X DAILY MAX 8G PER JOINT PER DAY TOTAL BODY DOSE MAX 32G/DAY Docusate Sodium 100 Mg Capsule, 100 MG PO BID, (Reported) Enalapril Maleate 10 Mg Tablet, 10 MG PO DAILY, (Reported) Esomeprazole Magnesium 20 Mg Capsule.dr, 20 MG PO BID, (Reported) Garlic 1,000 Mg Capsule, 1,000 MG PO HS, (Reported) Hydrocodone/Acetaminophen 1 Each Tablet, 1 TAB PO Q6H PRN for PAIN, (Reported) Levothyroxine Sodium 50 Mcg Tablet, 50 MCG PO DAILY, (Reported) Lidocaine 700 Mg Adh..patch, 3 PATCH TP DAILY, (Reported) APPLY TO LEFT SHOULDER, RIGHT SHOULDER, AND T5-T12/THORACIC SPINE REMOVE AT 1930 Mag Hydrox/Al Hydrox/Simeth 30 Ml Oral.susp, 15 ML PO Q4H PRN for INDIGESTION, ( Reported) Oxybutynin Chloride 10 Mg Tab.er.24, 20 MG PO DAILY, (Reported) TAKES 2 (10MG) TABLETS Simvastatin 80 Mg Tablet, 80 MG PO HS, (Reported) Tramadol HCl 50 Mg Tablet, 50 MG PO Q12H PRN for PAIN, (Reported) Verapamil HCl 240 Mg Tablet.er, 240 MG PO BID, (Reported) Vitamin E Acetate 400 Unit Capsule, 400 UNIT PO HS, (Reported) Past Ypbffzh-Cjolnc-Xldbxe Hx Patient Social History Alcohol Use: Denies Use Recreational Drug Use: No Smoking Status: Never a Smoker Type Used: Cigarettes 2nd Hand Smoke Exposure: No Recent Foreign Travel: No Contact w/Someone Who Travel: No Recent Infectious Disease Expo: No Recent Hopitalizations: No Physical Abuse Screen: No Sexual Abuse: No Immunizations Up To Date Date of Pneumonia Vaccine: Feb 18, 2016 Date of Influenza Vaccine: Feb 18, 2016 Seasonal Allergies Seasonal Allergies: No Surgeries HX Surgeries: Yes (LEFT LUNG BX/ RESECTION ) Surgeries: Appendectomy, Gallbladder, Hysterectomy Respiratory Hx Respiratory Disorders: Yes (LEFT LUNG CANCER--S/P SURGERY ONLY. ) Respiratory Disorders: Pneumonia Cardiovascular Hx Cardiac Disorders: Yes (chronic ischemic heart disease) Cardiac Disorders: Coronary Artery Disease, High Cholesterol, Hypertension Neurological Hx Neurological Disorders: Yes Neurological Disorders: Neuropathy, Stroke, TIA Reproductive System : No TOWERMAN History: Hysterectomy Genitourinary Hx Genitourinary Disorders: Yes (over active bladder/incontinence) Genitourinary Disorders: Kidney Stones Gastrointestinal Hx Gastrointestinal Disorders: Yes Gastrointestinal Disorders: Gastroesophageal Reflux, Chronic Constipation Musculoskeletal Hx Musculoskeletal Disorders: Yes ("BURSITIS" LEFT HIP; COMPRESSION FRACTURES IN SPINE; GENERALIZED WEAKNESS; RIGHT RADIUS FRACTURE--FOLLOWED BY DR. LEON AT [facility] AND BY NEUROSURGEON FOR COMPRESSION FRACTURE IN SPINE. ) Musculoskeletal Disorders: Osteoporosis, Arthritis, Fractures Endocrine Hx Endocrine Disorders: Yes Endocrine Disorders: Hypothyroidsim HEENT HX ENT Disorders: No HEENT Disorders: Cataract Cancer Hx Cancer: Yes (LEFT LUNG CANCER-S/P SURGERY ONLY, NO CHEMO OR RADIATION--SEES ONCOLOGY AT [facility] [place]) Cancer: Lung Psychosocial Hx Psychiatric Problems: No Integumentary HX Skin/Integumentary Disorder: No Blood Transfusions Hx Blood Disorders: No Family Medical History Family Medial History: Cataracts 19 MOTHER Diabetes mellitus 19 FATHER FH: CHF (congestive heart failure) 19 FATHER 19 MOTHER FH: COPD (chronic obstructive pulmonary disease) 19 FATHER 19 MOTHER Exam Exam Vital Signs Date Time Temp Pulse Resp B/P (MAP) Pulse Ox O2 Delivery O2 Flow Rate FiO2 08/07/16 04:00 98.4 104 20 109/60 93 Room Air 3/30/17 02:20 109 20 124/60 99 Room Air 08/07/16 00:00 96.6 104 22 104/68 97 Room Air 08/06/16 23:00 104 104/68 08/06/16 22:10 93 78/53 08/06/16 20:40 97.0 103 17 100/66 99 Room Air 08/06/16 16:00 97.9 89 18 149/82 99 Nasal Cannula 2.00 08/06/16 15:05 2.00 08/06/16 12:00 98.0 84 16 156/85 91 Nasal Cannula 2.00 08/06/16 09:00 91 Nasal Cannula 2.00 08/06/16 08:00 98.4 68 18 131/77 95 Nasal Cannula 2.00 I & O 08/07/16 07:00 Intake Total 3170 ml Output Total 1690 ml Balance 1480 ml General Appearance: No Apparent Distress, WD/WN, Chronically ill, Thin, Other ( frail, pale) HEENT: PERRL/EOMI, Normal ENT Inspection, Pharynx Normal Neck: Full Range of Motion, Normal Inspection, Non Tender, Supple, Carotid Bruit Respiratory: Chest Non Tender, Lungs Clear, Normal Breath Sounds, No Accessory Muscle Use, No Respiratory Distress, Decreased Breath Sounds Cardiovascular: Regular Rate, Rhythm, No Edema, No Gallop, No JVD, No Murmur, Normal Peripheral Pulses Capillary Refill: Less Than 3 Seconds Gastrointestinal: non tender Extremity: Normal Capillary Refill, Normal Inspection, Non Tender, No Calf Tenderness, No Pedal Edema Neurologic/Psychiatric: Alert, Oriented x3, No Motor/Sensory Deficits, Normal Mood/Affect Skin: Normal Color, Warm/Dry Lymphatic: No Adenopathy Results Lab Laboratory Tests 08/05/16 21:30 08/06/16 05:40 08/06/16 19:55 08/07/16 05:30 Clinical Quality Measures DVT/VTE Risk/Contraindication: Risk Factor Score Per Nursin RFS Level Per Nursing on Admit: 4+=Very High ANGELINE MONGE DO Aug 07, 2016 06:52
--- NOTE | 2016-08-07 06:58 | Progress Note (SOAP) ---
Subjective Subjective/Events-last exam No complaints, pain currently controlled, POD #1 s/p IM nailing left subtroch fracture Objective Exam Vital Signs Date Time Temp Pulse Resp B/P (MAP) Pulse Ox O2 Delivery O2 Flow Rate FiO2 08/07/16 04:00 98.4 104 20 109/60 93 Room Air 08/07/16 02:20 109 20 124/60 99 Room Air 08/07/16 00:00 96.6 104 22 104/68 97 Room Air 08/06/16 23:00 104 104/68 08/06/16 22:10 93 78/53 08/06/16 20:40 97.0 103 17 100/66 99 Room Air 08/06/16 16:00 97.9 89 18 149/82 99 Nasal Cannula 2.00 08/06/16 15:05 2.00 08/06/16 12:00 98.0 84 16 156/85 91 Nasal Cannula 2.00 08/06/16 09:00 91 Nasal Cannula 2.00 08/06/16 08:00 98.4 68 18 131/77 95 Nasal Cannula 2.00 I & O 08/07/16 07:00 Intake Total 3170 ml Output Total 1690 ml Balance 1480 ml Capillary Refill : Less Than 3 SecondsLess Than 3 Seconds General Appearance: No Apparent Distress Respiratory: No Accessory Muscle Use, No Respiratory Distress Cardiovascular: Normal Peripheral Pulses Gastrointestinal: non tender, soft Extremity: Normal Capillary Refill, Normal Inspection, No Calf Tenderness, No Pedal Edema Neurologic/Psychiatric: Alert, Oriented x3 Skin: Normal Color, Warm/Dry (dressing to left hip has mild sang drainage, dressing changed this AM, otherwise normal) Results Lab Laboratory Tests 08/06/16 19:55: White Blood Count 28.4H, Red Blood Count 3.55L, Hemoglobin 10.1L, Hematocrit 32L , Mean Corpuscular Volume 91, Mean Corpuscular Hemoglobin 29, Mean Corpuscular Hemoglobin Concent 31L, Red Cell Distribution Width 17.4H, Platelet Count 369, Mean Platelet Volume 9.8 08/07/16 05:30: White Blood Count 14.6H, Red Blood Count 2.36L, Hemoglobin 6.6#*L, Hematocrit 21L, Mean Corpuscular Volume 90, Mean Corpuscular Hemoglobin 28, Mean Corpuscular Hemoglobin Concent 31L, Red Cell Distribution Width 17.0H, Platelet Count 279, Mean Platelet Volume 9.7, Neutrophils (%) (Auto) 91H, Lymphocytes (% ) (Auto) 4L, Monocytes (%) (Auto) 5, Eosinophils (%) (Auto) 0, Basophils (%) ( Auto) 0, Neutrophils # (Auto) 13.3H, Lymphocytes # (Auto) 0.6L, Monocytes # ( Auto) 0.7, Eosinophils # (Auto) 0.0, Basophils # (Auto) 0.0, Prothrombin Time 16.2H, INR Comment 1.3, Sodium Level 133L, Potassium Level 4.4, Chloride Level 105, Carbon Dioxide Level 21, Anion Gap 7, Blood Urea Nitrogen 13, Creatinine 0.73, Estimat Glomerular Filtration Rate > 60, BUN/Creatinine Ratio 18, Glucose Level 244H, Calcium Level 7.4L, Total Bilirubin 0.3, Aspartate Amino Transf (AST /SGOT) 26, Alanine Aminotransferase (ALT/SGPT) 8, Alkaline Phosphatase 253H, Total Protein 3.8L, Albumin 2.0L Assessment/Plan Assessment/Plan Assess & Plan/Chief Complaint A: displaced subtrochanteric fracture of left hip, s/p IM nailing of left hip fracture, acute blood loss anemia P: Continue current treatment, [address] units [address]BC per Dr[address] Nicole followed by aicha. Consult health social work professor for DC planning. Clinical Quality Measures DVT/VTE Risk/Contraindication: Risk Factor Score Per Nursin RFS Level Per Nursing on Admit: 4+=Very High MOLLY HARRIS APRN Aug 07, 2016 6:58 am
[2016-08-07] MEDS: RT-ALBUTEROL/IPRATROPIUM 3 ML (DUONEB) VIAL INH SCH ×4 (07:26→20:46)
--- NOTE | 2016-08-07 09:23 | Physical Therapy Evaluation ---
PT Evaluation-General Medical Diagnosis Admission Date Aug 05, 2016 at 22:30 Medical Diagnosis: left hip fracture Onset Date: Aug 05, 2016 Therapy Diagnosis Therapy Diagnosis: generalized weakness and debility Height/Weight Height (Feet): 5 Height (Inches): 2.00 Weight (Pounds): 128 Weight (Ounces): 0.0 Precautions Precautions/Isolations: Fall Prevention Weight Bear Status Weight Bearing Restriction: Touch Toe Bearing Location Restriction: L LE Referral Physician: Maria A Reason for Referral: Evaluation/Treatment Medical History Pertinent Medical History: CAD, HTN, Neuropathy, Smoking Additional Medical History lung cancer; recent humeral fracture left Current History while standing, attempted to take a step and felt a "pop" in left hip; staff lowered her to the floor Reviewed History: Yes Social History Home: [facility] Prior Level of Function Functional [place] Measure 0=Not Assessed/NA 4=Minimal Assistance 1=Total Assistance 5=Supervision or Setup 2=Maximal Assistance 6=Modified [place] 3=Moderate Assistance 7=Complete [place] Bed Mobility: 4 Transfers (B,C,W/C) (FIM): 3 Gait: 1 PT Evaluation-Current Subjective Patient and family agree to therapy. Patient states she is anxious about getting OOB due to left hip pain. Pain Numeric Pain Scale: 10-Worst Possible Pain Location: Left Location Body Site: Hip Pain Description: Acute Pt/Family Goals return to MD Objective Patient Orientation: Person, Time, Situation Problem Solving: Fair Attachments: Stone Catheter, IV ROM/Strength ROM Lower Extremities right LE WFL; left LE limited due to pain, however, function in sit with exercises Strenght Lower Extremities right knee flexion/extension 3/5; hip flexion 3/5; ankle dorsi/plantarflexion 3/ 5 left knee flexion/extension 2/5; hip flexion NT; ankle dorsi/plantarflexion 3/5 Integumentary/Posture Integumentary refer to nursing notes Bladder Incontinence: Stone Cath Posture kyphotic Neuromuscular (Tone, Coordination, Reflexes) diminished coordination due to pain Sensory Vision: Wears Glasses Hearing: Impaired Sensation Right Lower Extremit: Impaired Sensation Left Lower Extremity: Impaired Transfers Functional [place] Measure 0=Not Assessed/NA 4=Minimal Assistance 1=Total Assistance 5=Supervision or Setup 2=Maximal Assistance 6=Modified [place] 3=Moderate Assistance 7=Complete [place] Transfers (B, C, W/C) (FIM): 1 Scootin Supine to/from Sit: 1 Sit to/from Stand: 1 bed t/f WC(FIM only if WC use): 1 Patient unable to comply with TTWB left LE requiring dependent assist, with gait belt in place. SPT to right Gait Mode of Locomotion: Both Anticipated Mode of Locomotion: Both Balance Sitting Static: Normal Sitting Dynamic: Normal Standing Static: Poor Standing Dynamic: Poor Treatment bilateral LE exercises 25 reps LAQ, AP in recliner Assessment/Needs 80 y.o. female, will benefit from skilled PT to address limitations in functional strength and mobility to ensure safe return to NH at maximum LOF. Patient is currently in uncontrolled left hip pain and unable to tolerated intense treatment or comply with TTWB left LE. Rehab Potential: Good Post Rehab Potential-Barriers: TTWB left LE PT Snf Goals Shipping Support Goals PT Shipping Support Goals Time Frame: Aug 15, 2016 Transfers (B,C,W/C) (FIM): 2 Gait (FIM): 1 Gait distance (FIM): 1=up to 49 ft Distance: 5' Gait Level of Assist: 2 Gait Assistive Device: FWW (TTWB left LE) PT Plan Problem List Problem List: Activity Tolerance, Functional Strength, Safety, Balance, Gait, Transfer, Bed Mobility, Other (TTWB left LE) Treatment/Plan Treatment Plan: Continue Plan of Care Treatment Plan: Bed Mobility, Education, Functional Activity [place], Functional Strength, Gait, Safety, Therapeutic Exercise, Transfers Treatment Duration: Aug 15, 2016 # of days/week 6 Visits Per Week: 11 Pt/Family Agrees w/Plan: Yes Safety Risks/Education Patient Education: Transfer Techniques, Safety Issues Teaching Recipient: Patient, Family Teaching Methods: Demonstration, Discussion Response to Teaching: Verbalize Understanding, Reinforcement Needed Discharge Recommendations Therapy D/C Recommendations: Usp (TCU/NH) Time/GCodes Time In: 845 Time Out: 905 Total Billed Treatment Time: 20 Total Billed Treatment 1 visit EVMod 20 min ACE MARTIN PT Aug 07, 2016 09:23
[2016-08-07] MEDS: HYDROcodone/APAP 10 MG/325 MG (LORTAB) TAB PO PRN ×2 (09:25→22:01)
[2016-08-07] MEDS: OXYBUTYNIN (DITROPAN) 5 MG TAB PO SCH ×2 (09:25→20:06)
[2016-08-07] MEDS: VERAPAMIL SR 240 MG (CALAN SR) TAB PO SCH ×2 (09:25→20:06)
[2016-08-07] MEDS: LEVOTHYROXINE 50 MCG (LEVOTHROID) TAB PO SCH (09:25)
[2016-08-07] MEDS: ASPIRIN E.C. 325 MG (ECOTRIN) TABLET PO SCH (09:25)
[2016-08-07] MEDS: ENALAPRIL 10 MG (VASOTEC) TAB PO SCH (09:25)
[2016-08-07] MEDS: LIDOCAINE (LIDODERM) 5% PATCH TP SCH (09:26)
[2016-08-07] MEDS: DICLOFENAC 1% GEL 100 GM (VOLTAREN) TUBE TP SCH ×3 (09:26→20:07)
[2016-08-07] MEDS: ENOXAPARIN 40 MG/0.4 ML (LOVENOX) SYR SC SCH ×2 (09:26→12:46)
--- NOTE | 2016-08-07 09:50 | OPERATIVE REPORT ---
PROCEDURE PHYSICIAN: JACK MOON DATE OF PROCEDURE: 08/06/2016 DICTATING PHYSICIAN: Jack Moon DO PREOPERATIVE DIAGNOSIS: Displaced angulated pathologic subtrochanteric fracture, left hip. POSTOPERATIVE DIAGNOSIS: Displaced angulated pathologic subtrochanteric fracture, left hip. PROCEDURE: Open reduction, intramedullary nailing, subtrochanteric fracture left proximal femur (left hip). SURGEON: Maria A CONTAINERS SALES REPRESENTATIVE: assistant surveyor LEONIDAS Ball. ANESTHESIA: General. INDICATIONS AND FINDINGS: The patient is a 80-year-old female who was at the rehab center at [facility]. The patient was rehabbing from a broken wrist. She was standing, she did not fall. She states that she twisted and she felt a severe sharp pain and had to be lowered to the ground. She was evaluated [facility] where x-rays revealed a displaced angulated subtrochanteric fracture of the left hip. The patient had a history of lung cancer in the past. She apparently was evaluated approximately a month ago and was told that that no abnormalities were noted in her follow-up. She was not taking any bisphosphonates for osteoporosis. The patient had been receiving some type of bursitis injections in her left hip. 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 The patient was taken to surgery where an intramedullary nailing, of her fracture was performed utilizing the Synthes trochanteric fixation nail utilizing 11 mm x 340 mm TFN nail with a 75 mm helical blade with a 40 mm distal locking screw. PROCEDURE IN DETAIL: The patient was transferred to the operating room, where a general inhalation anesthetic was administered. The patient was then placed supine upon the fracture table. The right lower extremity was draped out of the operating field. The left lower extremity was placed in traction. The C-arm was used to verify the fracture reduction. The patient continued to demonstrate posterior displacement of her femoral shaft fracture in relation to the subtrochanteric region noted on the lateral x-ray. She demonstrated an anatomic reduction in the AP plane. A ChloraPrep and sterile drape of the left hip and left lower extremity was performed. An oblique incision was made proximal to the greater trochanter. The incision was deepened down to the greater trochanter where a guide pin was placed through the tip of the greater trochanter and advanced distally. While the hip was being fluoroscopic in the lateral position, the distal fracture fragment was elevated, and the proximal fracture fragment was displaced posteriorly with a Rodriguez elevator placed over the femoral neck. This allowed deliverance of a guide pin into the femoral shaft. The proximal femur was then over drilled. A guide pin was placed across the fracture site and into the distal fracture fragment. The canal was then reamed up to 12 mm and the reamings were saved for pathologic identification. The 11 mm x 340 mm TFN nail was then placed over the guide pin and advanced distally while elevating the distal fracture fragment and maintaining the proximal fracture fragment in a flexed position. The out head rigger guide was then obtained, maintaining reduction. A guide pin was placed across the lateral femoral cortex through the jah and into the femoral neck. An additional screw was placed percutaneously through the outrigger guide to secure the fixation. The outer cortex was then drilled a portion of the central cortex was then drilled. The 75 mm helical blade was then impacted into position and the jah was locked to the helical blade with a proximal screw. Attention was directed to the distal aspect of the jah using the C-arm. The central dynamic oblong hole was identified. A stab incision was made laterally. Blunt dissection was carried down to the lateral femoral cortex. A guide pin was then placed across the distal femur transversely through the jah through the dynamic hole. This was then removed. This was overdrilled with a drill bit. A 40 mm locking screw was then inserted with satisfactory position of the screw verified both in the AP and lateral plane. The wounds were then irrigated extensively with normal saline solution. The iliotibial band was closed laterally with 0 Vicryl suture and the fascia over the abductor musculature was closed in the proximal aspect of the wound. The subcutaneous tissues were closed with 0 and 2-0 Vicryl suture. The skin was closed with stainless steel alva. An Adaptic Neosporin bulky dressing was placed about the left hip and left lateral thigh. The patient was then awakened and was transported to postop recovery in satisfactory condition. Job ID: [id number] Dictated Date: 08/06/2016 19:33:36 Environmental Health Specialist Date: 08/07/2016 09:35:32 / dimas
--- NOTE | 2016-08-07 10:13 | Progress Note-Cardiology ---
Cardiology SOAP Progress Note Subjective: Sitting up in a chair at the bedside. No c/o CP, SOB, palpitations, syncope or near syncope. Objective: I&O/Vital Signs Vital Sign - Last 12Hours 08/07/16 08/07/16 08/07/16 08/07/16 02:20 04:00 07:26 08:00 Temp 98.4 97.3 Pulse 109 104 106 Resp 20 20 24 B/P (MAP) 124/60 109/60 135/74 Pulse Ox 99 93 100 92 O2 Delivery Room Air Room Air Room Air 08/07/16 08/07/16 08/07/16 08/07/16 09:55 09:55 10:25 11:12 Temp 97.8 97.8 97.8 Pulse 105 Resp 18 B/P (MAP) 112/55 Pulse Ox 92 Intake and Output 08/07/16 00:00 Intake Total 2120 ml Output Total 2065 ml Balance 55 ml Weight (Pounds): 128 Weight (Ounces): 0.0 Weight (Calculated Kilograms): 58.743435 Constitutional: AAO x 3 Respiratory: No accessory muscle use, No respiratory distress, chest expansion is symmetric, lungs clear to auscultation Cardiovascular: regular rate-rhythm, No JVD, S1 and S2 Gastrointestional: No tender, soft, round, audible bowel sounds, No spleenomegaly Extremities: No clubbing, No cyanosis, No significant edema Neurologic/Psychiatric: alert, oriented x 3, grossly intact (Left leg was not manipulated d/t hip fracture; post surgical) Skin: pallor, No rash, No ulcerations Results/Procedures: Labs Laboratory Tests 08/06/16 19:55: White Blood Count 28.4H, Red Blood Count 3.55L, Hemoglobin 10.1L, Hematocrit 32L , Mean Corpuscular Volume 91, Mean Corpuscular Hemoglobin 29, Mean Corpuscular Hemoglobin Concent 31L, Red Cell Distribution Width 17.4H, Platelet Count 369, Mean Platelet Volume 9.8 08/07/16 05:30: White Blood Count 14.6H, Red Blood Count 2.36L, Hemoglobin 6.6#*L, Hematocrit 21L, Mean Corpuscular Volume 90, Mean Corpuscular Hemoglobin 28, Mean Corpuscular Hemoglobin Concent 31L, Red Cell Distribution Width 17.0H, Platelet Count 279, Mean Platelet Volume 9.7, Neutrophils (%) (Auto) 91H, Lymphocytes (% ) (Auto) 4L, Monocytes (%) (Auto) 5, Eosinophils (%) (Auto) 0, Basophils (%) ( Auto) 0, Neutrophils # (Auto) 13.3H, Lymphocytes # (Auto) 0.6L, Monocytes # ( Auto) 0.7, Eosinophils # (Auto) 0.0, Basophils # (Auto) 0.0, Prothrombin Time 16.2H, INR Comment 1.3, Sodium Level 133L, Potassium Level 4.4, Chloride Level 105, Carbon Dioxide Level 21, Anion Gap 7, Blood Urea Nitrogen 13, Creatinine 0.73, Estimat Glomerular Filtration Rate > 60, BUN/Creatinine Ratio 18, Glucose Level 244H, Calcium Level 7.4L, Total Bilirubin 0.3, Aspartate Amino Transf (AST /SGOT) 26, Alanine Aminotransferase (ALT/SGPT) 8, Alkaline Phosphatase 253H, Total Protein 3.8L, Albumin 2.0L A/P: Assessment: Spontaneous left hip fracture on 08-06-16 - s/p surgery on 08-06-16 Post-op anemia - management per medical/surgical services Reports h/o "mini-stroke" in March 2016 diagnosed in [place] - details unknown MPI at [facility] in [place], [place] in January 2015 showed no evidence of myocardial infarction or ischemia. LVEF 69%. Normal resting LV cavity size, wall motion. Per Dr. Vergara Hypertension HLP - statin tx Reports h/o left lung cancer which was treated with wedge resection at [facility] in [place], [place] in [address] Nick Loco Previous h/o tobaccoism - quit 28 years ago per pt Hypothyroidism - replacement tx Dementia Plan: Records from [facility] received and reviewed Echocardiogram today to evaluate LVEF and structure d/t documented h/o " ischemic heart disease" Post-op anemia - management per medical and surgical services Monitor lab closely Aspirin has already been resumed along with home antihypertensives Physician Assessment Physician Assessment Lungs: clear Cor: reg A&R * As documented in our note above * I interviewed and examined her. I spoke with her in detail regarding our card eval. I reviewed her previous records. I discussed card risk factor modification. I answered her questions * Monitor labs PADDY ESTEBAN Aug 07, 2016 10:13 DANE CARROLL MD FACP FAC CCDS Aug 07, 2016 13:03
[2016-08-07] MEDS ORDERED: NS IV 500 ML 500 ML ONE (10:15)
--- NOTE | 2016-08-07 10:45 | Progress Note-Hospitalist ---
Progress Note HPI/CC on Admission CC: Left hip fracture HPI: This is a 80yo[address] pt of Dr. Jerzy Cote in [place] but now Dr. Jeffers since she has been at [facility] that presented to ER by ambulance after a fall and sustained left hip fracture but she heard her hip snap before the fall which makes this suspicious for lung cancer mets or at the very least osteoporosis. Pt has hx of lung CA and CAD so it is concerning that this could be related to CA process. Patient Interview: Pt states that she moved to [facility] in the middle of May, but states that she has not been there an entire month yet. Pt states that she previously broke her right arm, and took the cast off yesterday in [place]. Upon returning to [place], pt states that her hip popped and she fell. Pt states that she had CA in left lung, and a section was removed in March of 2015. Oncologist is Dr. Fairbanks and she sees him every three months. Pt denies smoking, and quit 28 years ago. 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 Pt's son lives in [place]. Physical exam stable. Scribed by Altaf Weinberg under the direct supervision of Dr. Meyer. Progress Notes/Assess & Plan Date Seen 08/07/16 Admission Dx/Process Assessment: Status post fall with sustained hip fracture need of repair today History of left lung cancer managed by oncology in [place] every 3 months in remission after lobectomy in 2014 Overall debility since right arm fracture Oxygen required COPD Previous smoker TIA 03/26 on Plavix Diagonsis/Assessment & Plan Chart Review: Pt underwent left hip fracture repair yesterday. Her Hgb this morning was 6.6 so is receiving 2 units of blood. Appreciate Cardiology and Pulmonary consultation. SW Review: Pt is receiving two units of blood. Pt is demanding. Patient Interview: Pt was informed that she will be receiving blood transfusion. Pt states she feels somewhat weak. Pt states she is in pain currently. Physical exam was stable. Pt lungs sound clear. Pt states her last BM was two weeks ago. Pt states this is normal for her. Pt states she would like to get back to bed. Scribed by Kadeem Pacheco under the direct supervision of Dr. Meyer. AFVSS, Pleasant, O x 3, frail, thin, pale, RRR, CTAB diminished bases No edema Assessment: Status post left hip fracture repair uncomplicated POD # 1 Postop anemia receiving 2 units of blood for hemoglobin 6.6 COPD CAD History of left lung cancer managed by oncology in [place] every 3 months in remission after lobectomy in 2014 Overall debility since right arm fracture Previous smoker TIA 03/26 on Plavix Plan: Dr. Saha consult for repair is appreciated Dr. Yuen consult Dr. Bonilla consult SCDs for DVT prophylaxis Check labs in a.m. Incentive spirometer Nebulizer treatments Oxygen supplementation DC planned for tomorrow to [place]? Slow recovery ROBIN MEYER DO Aug 07, 2016 10:45
[2016-08-07] MEDS ORDERED: FUROSEMIDE 40 MG/4 ML INJ (LASIX) IVP NR (11:00)
--- NOTE | 2016-08-07 13:36 | Physical Therapy Daily Note ---
PT Daily Note-Current Subjective Patient declined OOB activity but agrees to exercises. Patient states her left leg really hurts. RN notified. Pain Numeric Pain Scale: 8 Location: Left Location Body Site: Hip Pain Description: Acute Appearance receiving PRBC Mental Status Patient Orientation: Person, Time, Situation Attachments: Stone Catheter, IV Transfers Functional [place] Measure 0=Not Assessed/NA 4=Minimal Assistance 1=Total Assistance 5=Supervision or Setup 2=Maximal Assistance 6=Modified [place] 3=Moderate Assistance 7=Complete IndependenceIRFPAI Quality Coding Scale 6 Independent with activity with or without an assistive device 5 Patient requires set up or clean up by helper. Patient completes activity by themselves 4 Supervision or touching assist (CGA). Wilson provide cues , steadying assist 3 The helper provides less than half the effort to complete the activity 2 The helper provides more than half the effort to complete the activity 1 Dependent. The helper does all the effort to complete an activity 7 Patient refused to complete or attempt activity 9 The patient did not perform the activity before the current illness or injury 88 Not attempted due to Medical conditions or safety concerns Exercises Supine Ex: Ankle pumps, Heel Slides, Straight leg raise, Hip abd/add Supine Reps: 15 (2 sets AAROM bilaterally) Assessment Patient tolerated treatment well and is repositioned in bed with pillow under bilateral LE's to relieve heel pressure. PT to increase activity as tolerated by patient. PT Registrar Museum Goals Registrar Museum Goals PT Half-Way Goals Time Frame: Aug 15, 2016 Transfers (B,C,W/C) (FIM): 2 Gait (FIM): 1 Gait distance (FIM): 1=up to 49 ft Distance: 5' Gait Level of Assist: 2 Gait Assistive Device: FWW (TTWB left LE) PT Plan Problem List Problem List: Activity Tolerance, Functional Strength Treatment/Plan Treatment Plan: Continue Plan of Care Treatment Plan: Bed Mobility, Education, Functional Activity [place], Functional Strength, Gait, Safety, Therapeutic Exercise, Transfers Treatment Duration: Aug 15, 2016 Visits Per Week: 11 Time/GCodes Time In: 1255 Time Out: 1310 Total Billed Treatment Time: 15 Total Billed Treatment 1 visit EX 15 min ACE MARTIN PT Aug 07, 2016 13:36
--- NOTE | 2016-08-07 14:07 | Occupational Therapy Eval ---
OT Evaluation-General/PLF Medical Diagnosis Admission Date Aug 05, 2016 at 22:30 Medical Diagnosis: left hip fracture Onset Date: Aug 05, 2016 Therapy Diagnosis Therapy Diagnosis: impaired self care skills Height/Weight Height (Feet): 5 Height (Inches): 2.00 Weight (Pounds): 128 Weight (Ounces): 0.0 Precautions Precautions/Isolations: Fall Prevention Safety Interventions: Reorient-PRN Weight Bear Status Weight Bearing Restriction: Touch Toe Bearing Location Restriction: L LE Referral Physician: Maria A Medical History Pertinent Medical History: CAD, GERD, HTN, Hypothroidism, Neuropathy, Smoking Additional Medical History lung cancer, left lung resection, high cholesterol, chronic ischemic heart disease, TIA, kidney stones, bursitis left hip, compression fractures, right radius fracture, Current History pt had fall with left hip fracture. Now s/p IM nail left hip and is TTWB Reviewed History: Yes Social History Home: [facility] ADL-Prior Level of Function ADL PLOF Comments Pt states she has been at [facility] for last month, but prior to that was living at [facility]. Pt states she uses 4WW for mobility. Had been receiving assistance with ADLs and mobility at SNF, but states she had been mostly independent prior to that. OT Current Status Subjective Pt in bed with RN present. Pt reports fatigue, states she recently finished with PT. Pt refused OOB activity, but agreed to evaluation in supine. Pt reports left hip pain. RN states pt had cast removed from right arm a few days ago and has no restrictions. Mental Status/Objective Patient Orientation: Person, Place, Situation Attachments: IV Current Glasses/Contacts: Yes Hand Dominance: Left Upper Extremity ROM Right UE grossly WFL, except decreased supination Left shoulder, wrist, and hand WFL. Unable to assess elbow flexion secondary to placement of IV and pt has soft immobilizer in place to prevent occlusion of IV Upper Extremity Coordination Grossly functional Upper Extremity Sensation Intact per pt report ADL-Treatment ADL-Current Pt declined OOB activity secondary to fatigue. Pt participated in UE assessment while in supine. Education provided regarding role of OT and plan of care. Pt states understanding of education and is in agreement with plan of care. Pt declined further activity at this time. Pt in bed with needs met after session. Functional [place] Measure 0=Not Assessed/NA 4=Minimal Assistance 1=Total Assistance 5=Supervision or Setup 2=Maximal Assistance 6=Modified [place] 3=Moderate Assistance 7=Complete IndependenceIRFPAI Quality Coding Scale 6 Independent with activity with or without an assistive device 5 Patient requires set up or clean up by helper. Patient completes activity by themselves 4 Supervision or touching assist (CGA). [place] provide cues , steadying assist 3 The helper provides less than half the effort to complete the activity 2 The helper provides more than half the effort to complete the activity 1 Dependent. The helper does all the effort to complete an activity 7 Patient refused to complete or attempt activity 9 The patient did not perform the activity before the current illness or injury 88 Not attempted due to Medical conditions or safety concerns Education OT Patient Education: Rehab process Teaching Recipient: Patient Teaching Methods: Discussion Response to Teaching: Verbalize Understanding OT Short Term Goals Short Term Goals 1=Demonstrate adherence to instructed precautions during ADL tasks. 2=Patient will verbalize/demonstrate understanding of assistive devices/ modifications for ADL. 3=Patient will improve strength/tolerance for activity to enable patient to perform ADL's. OT Detention Goals Purchasing Contracting Clerk Goals Time Frame: Aug 21, 2016 Eating (FIM): 6 Grooming(FIM): 5 Upper Body Dressing(FIM): 4 Lower Body Dressing(FIM): 3 Toilet/Commode Transfer(FIM): 3 Additional Goals: 1-Demonstrate ADL Tasks, 2-Verbalize Understanding, 3- ImproveStrength/[place] 1=Demonstrate adherence to instructed precautions during ADL tasks. 2=Patient will verbalize/demonstrate understanding of assistive devices/ modifications for ADL. 3=Patient will improve strength/tolerance for activity to enable patient to perform ADL's. OT Education/Plan Problem List/Assessment Assessment: Decreased Activ Tolerance, Decreased UE Strength, Dependent Transfers, Impaired Self-Care Skills Pt to benefit from skilled OT intervention for ADL training, transfers, strengthening, and adaptive equipment training as needed to increase level of independence and allow safe discharge plan. Discharge Recommendations Plan/Recommendations: Continue POC Patient/Family Goals Return to independent living Treatment Plan/Plan of Care Treatment,Training & Education: Yes Patient would benefit from OT for education, treatment and training to promote independence in ADL's, mobility, safety and/or upper extremity function for ADL' s. Plan of Care: ADL Retraining, Functional Mobility, UE Funct Exercise/Act Treatment Duration: Aug 21, 2016 # of days/week 5 Visits Per Week: 5 Agreement: Yes Rehab Potential: Fair Time/GCodes Start Time: 13:40 Stop Time: 13:55 Total Time Billed (hr/min): 15 Billed Treatment Time 1 visit, Lani(15minutes) SINCERE DELGADO OT Aug 07, 2016 14:07
--- NOTE | 2016-08-07 14:10 | Anesthesia-General Post-Op ---
General Patient Condition Mental Status/LOC: Same as Preop Cardiovascular: Satisfactory Nausea/Vomiting: Absent Respiratory: Satisfactory Pain: Controlled Complications: Absent Post Op Complications Complications None Follow Up Care/Instructions Patient Instructions None needed. Anesthesia/Patient Condition Patient Condition Patient is doing well, no complaints, stable vital signs, no apparent adverse anesthesia problems. No complications reported per nursing. LANE MAURICIO CRNA Aug 07, 2016 14:10
[2016-08-07] MEDS: SENNA W/DOCUSATE (SENOKOT S) TABLET PO SCH (20:06)
[2016-08-07] MEDS: SIMvastatin 40 MG (ZOCOR) TAB PO SCH (20:06)
[2016-08-07] MEDS: VITAMIN D3 1,000 UNITS (CHOLECALCIFEROL) TABLET PO SCH (20:07)
[2016-08-08 04:00] VITALS: BP 145/68
[2016-08-08] MEDS: D5 1/2 NS 1000 ML IV SOLUTION 1,000 ML IV SCH (05:27)
[2016-08-08] MEDS: RT-ALBUTEROL/IPRATROPIUM 3 ML (DUONEB) VIAL INH SCH ×2 (06:06→09:54)
--- NOTE | 2016-08-08 06:49 | Progress Note (SOAP) ---
Subjective Subjective/Events-last exam POD 2 s/p IM nailing of left hip. She has no complaints this morning. Pain controlled. denies numbness/tingling to LLE Objective Exam Vital Signs Date Time Temp Pulse Resp B/P (MAP) Pulse Ox O2 Delivery O2 Flow Rate FiO2 08/08/16 06:08 92 08/08/16 04:00 97.4 88 18 145/68 92 Room Air 08/07/16 20:46 95 08/07/16 20:00 98.5 101 18 154/85 96 Room Air 08/07/16 16:27 97.0 08/07/16 16:23 96 20 141/65 100 08/07/16 16:00 98.3 96 20 141/65 100 Room Air 08/07/16 15:59 97.1 99 18 127/66 99 08/07/16 15:58 97.1 99 20 127/66 08/07/16 15:26 93 08/07/16 13:44 98.5 89 18 120/59 95 08/07/16 12:00 97.5 105 20 101/55 94 Room Air 08/07/16 11:12 92 08/07/16 10:40 98.2 98 18 126/76 95 08/07/16 10:25 97.8 105 18 112/55 08/07/16 09:55 97.8 08/07/16 09:55 97.8 08/07/16 08:00 97.3 106 24 135/74 92 Room Air 08/07/16 07:26 100 I & O 08/08/16 07:00 Intake Total 3160 ml Output Total 2650 ml Balance 510 ml Capillary Refill : Less Than 3 SecondsLess Than 3 Seconds General Appearance: No Apparent Distress Extremity: Normal Capillary Refill, Normal Inspection, No Calf Tenderness, No Pedal Edema Neurologic/Psychiatric: Alert, Oriented x3, No Motor/Sensory Deficits, Normal Mood/Affect Skin: Normal Color, Warm/Dry (dressing to left hip has trace sang saturation) Results Lab Microbiology 08/06/16 MRSA Screen - Final, Complete MRSA not isolated Assessment/Plan Assessment/Plan Assess & Plan/Chief Complaint A: displaced subtrochanteric fracture of left hip (possible pathologic) s/p IM nailing of left hip fracture acute blood loss anemia P: [facility] service f/u with Dr. mittal in 3 weeks remove alva on POD #10 and apply steri strips touch toe weight bearing only daily island dressing changes continue Sherin hose DVT prophylaxis per internal medicine script for norco on chart Continue ICE to left hip TID Orthopedics signing off Clinical Quality Measures DVT/VTE Risk/Contraindication: Risk Factor Score Per Nursin RFS Level Per Nursing on Admit: 4+=Very High MOLLY HARRIS APRN Aug 08, 2016 6:49 am
[2016-08-08] MEDS ORDERED: HYDR-3731 PO (06:54)
[2016-08-08 07:01] LABS: MEAN PLATELET VOLUME 9.9 FL (7.4-10.4); RED BLOOD COUNT 3.39 10^6/uL (4.35-5.85); RED CELL DISTRIBUTION WIDTH 16.7 % (10.0-14.5); WHITE BLOOD COUNT 12.5 10^3/uL (4.3-11.0)
[2016-08-08 07:10] LABS: INR 1.3 (0.8-1.4); PROTHROMBIN TIME PATIENT 16.3 SEC (12.2-14.7)
[2016-08-08 07:18] LABS: ANION GAP 6 MMOL/L (5-14); BLOOD UREA NITROGEN 13 MG/DL (7-18); BUN/CREATININE RATIO 23; CALCIUM 7.7 MG/DL (8.5-10.1); CARBON DIOXIDE 22 MMOL/L (21-32); CHLORIDE 108 MMOL/L (98-107); CREATININE SERUM 0.57 MG/DL (0.60-1.30); GFR ESTIMATED > 60; GLUCOSE 115 MG/DL (70-105); POTASSIUM 4.2 MMOL/L (3.6-5.0); SODIUM 136 MMOL/L (135-145)
[2016-08-08 08:15] VITALS: BP 174/83
[2016-08-08 08:30] VITALS: BP 184/83
[2016-08-08] MEDS: ASPIRIN E.C. 325 MG (ECOTRIN) TABLET PO SCH (08:55)
[2016-08-08] MEDS: LEVOTHYROXINE 50 MCG (LEVOTHROID) TAB PO SCH (08:55)
[2016-08-08] MEDS: VERAPAMIL SR 240 MG (CALAN SR) TAB PO SCH (08:55)
[2016-08-08] MEDS: PANTOPRAZOLE 20 MG TABLET (PROTONIX) PO SCH (08:55)
[2016-08-08] MEDS: ENOXAPARIN 40 MG/0.4 ML (LOVENOX) SYR SC SCH (08:55)
[2016-08-08] MEDS: HYDROcodone/APAP 10 MG/325 MG (LORTAB) TAB PO PRN ×2 (08:55→13:08)
[2016-08-08] MEDS: SENNA W/DOCUSATE (SENOKOT S) TABLET PO SCH (08:56)
[2016-08-08] MEDS: OXYBUTYNIN (DITROPAN) 5 MG TAB PO SCH (08:56)
[2016-08-08] MEDS: ENALAPRIL 10 MG (VASOTEC) TAB PO SCH (09:05)
[2016-08-08] MEDS: DICLOFENAC 1% GEL 100 GM (VOLTAREN) TUBE TP SCH ×2 (09:05→13:08)
[2016-08-08] MEDS: LIDOCAINE (LIDODERM) 5% PATCH TP SCH (09:05)
[2016-08-08] MEDS ORDERED: TRAM50TA2 PO (11:11)
--- NOTE | 2016-08-08 11:11 | Occupational Ther Daily Note ---
OT Current Status-Daily Note Subjective Pt sitting up in recliner, nrsg in room. Pt stated that she didn't feel good and couldn't take her pills because she would be sick. Pt stated that she had 10/10 pain. Pt ate a few bites of food then took two pills at a time for nrsg then made sure that the trash can was close since she felt she would be sick. Mental Status/Objective Functional Jewell Measure 0=Not Assessed/NA 4=Minimal Assistance 1=Total Assistance 5=Supervision or Setup 2=Maximal Assistance 6=Modified Jewell 3=Moderate Assistance 7=Complete Jewell Other Treatment Pt stated that she would attempt some UE exercises. She completed some light resistive tricep exercises then stated it hurt down her back and she couldn't do anything more. After therapy, pt sitting in recliner with call light/phone in reach. All needs met in room. OT Short Term Goals Short Term Goals 1=Demonstrate adherence to instructed precautions during ADL tasks. 2=Patient will verbalize/demonstrate understanding of assistive devices/ modifications for ADL. 3=Patient will improve strength/tolerance for activity to enable patient to perform ADL's. OT Senior Living Goals Senior Living Goals Time Frame: Aug 21, 2016 Eating (FIM): 6 Grooming(FIM): 5 Upper Body Dressing(FIM): 4 Lower Body Dressing(FIM): 3 Toilet/Commode Transfer(FIM): 3 Additional Goals: 1-Demonstrate ADL Tasks, 2-Verbalize Understanding, 3- ImproveStrength/[place] 1=Demonstrate adherence to instructed precautions during ADL tasks. 2=Patient will verbalize/demonstrate understanding of assistive devices/ modifications for ADL. 3=Patient will improve strength/tolerance for activity to enable patient to perform ADL's. OT Education/Plan Problem List/Assessment Pt to benefit from skilled OT intervention for ADL training, transfers, strengthening, and adaptive equipment training as needed to increase level of independence and allow safe discharge plan. Discharge Recommendations Plan/Recommendations: Continue POC Treatment Plan/Plan of Care Patient would benefit from OT for education, treatment and training to promote independence in ADL's, mobility, safety and/or upper extremity function for ADL' s. Plan of Care: ADL Retraining, Functional Mobility, UE Funct Exercise/Act Treatment Duration: Aug 21, 2016 Visits Per Week: 5 Agreement: Yes Rehab Potential: Fair Time/GCodes Start Time: 09:20 Stop Time: 09:35 Total Time Billed (hr/min): 15 Billed Treatment Time 1 visit-FA 1 (15 min) JASVIR GUTIERREZ Aug 08, 2016 11:11
--- NOTE | 2016-08-08 11:14 | Discharge Inst-Skilled Nursing ---
Discharge Inst-Skilled NF Chief Complaint CC: Left hip fracture HPI: This is a 80yo[address] pt of Dr. Jerzy Cote in [place] but now Dr. Jeffers since she has been at [facility] that presented to ER by ambulance after a fall and sustained left hip fracture but she heard her hip snap before the fall which makes this suspicious for lung cancer mets or at the very least osteoporosis. Pt has hx of lung CA and CAD so it is concerning that this could be related to CA process. Patient Interview: Pt states that she moved to [facility] in the middle of May, but states that she has not been there an entire month yet. Pt states that she previously broke her right arm, and took the cast off yesterday in [place]. Upon returning to [place], pt states that her hip popped and she fell. Pt states that she had CA in left lung, and a section was removed in March of 2015. Oncologist is Dr. Fairbanks and she sees him every three months. Pt denies smoking, and quit 28 years ago. 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 Pt's son lives in [place]. Physical exam stable. Scribed by Altaf Weinberg under the direct supervision of Dr. Meyer. Patient Instructions Patient Problems: left hip fracture COPD h/o Lung cancer CAD Goal: Strengthen and return home when able Consult/Follow Up/Orders Follow Up Appt.: Dr Jeffers for IA rounds Skilled NF Admit to: [facility] Certification ([facility]) I certify that SNF services are required to be given on an inpatient basis because of the above named patient's need for long-term care on a continuing basis for the conditions(s) for which he/she was receiving inpatient hospital services prior to his/her transfer to the SNF. Alf Facility Order: Nursing Services, Mirror Painter-Evaluate & Treat, Physical Therapy-Evaluate & Treat, Speech Language-Evaluate & Treat Discharge Diet: Cardiac Diet Daily Activity as Tolerated: Yes New & Resume Previous Orders Continued Medications: Aspirin (Aspirin EC) 81 Mg Tablet. 81 MG PO HS, TAB Beta-Carotene(A) W-C & E/Min (Vision Vitamins) 1 Each Tablet 1 TAB PO HS, TAB Biotin (Biotin) 1,000 Mcg Tablet 1000 MCG PO HS, TAB Bisacodyl (Bisacodyl) 10 Mg Supp.rect 10 MG RC DAILY PRN for CONSTIPATION, SUPP.RECT Cholecalciferol (Vitamin D3) (Vitamin D3) 1,000 Unit Tablet 1000 UNIT PO HS, TAB Clopidogrel Bisulfate (Plavix) 75 Mg Tablet 75 MG PO DAILY, TAB Diclofenac Sodium (Voltaren) 100 Gm Gel..gram. TP TID, TUBE LOWER EXTREMETIES: 4G 3X DAILY MAX 16G PER JOINT PER DAY UPPER EXTREMETIES: 2G 3X DAILY MAX 8G PER JOINT PER DAY TOTAL BODY DOSE MAX 32G/DAY Docusate Sodium (Colace) 100 Mg Capsule 100 MG PO BID, CAP Enalapril Maleate (Enalapril Maleate) 10 Mg Tablet 10 MG PO DAILY, TAB Esomeprazole Magnesium (Nexium) 20 Mg Capsule.dr 20 MG PO BID, CAP Garlic (Garlic) 1,000 Mg Capsule 1000 MG PO HS, CAP Hydrocodone/Acetaminophen (Lortab 10-325 mg Tablet) 1 Each Tablet 1 TAB PO Q6H PRN for PAIN, #60 TAB (This prescription has been renewed) Levothyroxine Sodium (Levothyroxine Sodium) 50 Mcg Tablet 50 MCG PO DAILY, TAB Lidocaine (Lidoderm) 700 Mg Adh..patch 3 PATCH TP DAILY, PATCH APPLY TO LEFT SHOULDER, RIGHT SHOULDER, AND T5-T12/THORACIC SPINE REMOVE AT 1930 Mag Hydrox/Al Hydrox/Simeth (Mylanta Suspension) 30 Ml Oral.susp 15 ML PO Q4H PRN for INDIGESTION, ML Oxybutynin Chloride (Oxybutynin Chloride ER) 10 Mg Tab.er.24 20 MG PO DAILY, TAB TAKES 2 (10MG) TABLETS Simvastatin (Simvastatin) 80 Mg Tablet 80 MG PO HS, TAB Tramadol HCl (Tramadol HCl) 50 Mg Tablet 50 MG PO Q12H PRN for PAIN, #60 TAB (This prescription has been renewed) Verapamil HCl (Verapamil ER) 240 Mg Tablet.er 240 MG PO BID, TAB Vitamin E Acetate (Vitamin E) 400 Unit Capsule 400 UNIT PO HS, CAP Annamarie Meyer Aug 08, 2016 11:12 ANNAMARIE MEYER DO Aug 08, 2016 11:14
--- NOTE | 2016-08-08 11:34 | Discharge Summary-Hospitalist ---
Diagnosis/Chief Complaint Date of Admission Aug 05, 2016 at 22:30 Date of Discharge Discharge Date: Aug 08, 2016 Admission Diagnosis Assessment: Status post fall with sustained hip fracture need of repair today History of left lung cancer managed by oncology in [place] every 3 months in remission after lobectomy in 2014 Overall debility since right arm fracture Oxygen required COPD Previous smoker TIA 03/26 on Plavix Discharge Diagnosis Assessment: Status post left hip fracture repair uncomplicated POD # 2 Postop anemia receiving 2 units of blood for hemoglobin 6.6 now improved COPD CAD History of left lung cancer managed by oncology in [place] every 3 months in remission after lobectomy in 2014 Overall debility since right arm fracture Previous smoker TIA 03/26 on Plavix Chart Review: Pt underwent left hip fracture repair yesterday. Her Hgb this morning was 6.6 so is receiving 2 units of blood. Appreciate Cardiology and Pulmonary consultation. SW Review: Pt is receiving two units of blood. Pt is demanding. Patient Interview: Pt was informed that she will be receiving blood transfusion. Pt states she feels somewhat weak. Pt states she is in pain currently. Physical exam was stable. Pt lungs sound clear. Pt states her last BM was two weeks ago. Pt states this is normal for her. Pt states she would like to get back to bed. Scribed by Kadeem Pacheco under the direct supervision of Dr. Meyer. AFVSS, Pleasant, O x 3, frail, thin, pale, RRR, CTAB diminished bases No edema Assessment: Status post left hip fracture repair uncomplicated POD # 1 Postop anemia receiving 2 units of blood for hemoglobin 6.6 COPD CAD History of left lung cancer managed by oncology in [place] every 3 months in remission after lobectomy in 2014 Overall debility since right arm fracture Previous smoker TIA 03/26 on Plavix Plan: Dr. Saha consult for repair is appreciated Dr. Yuen consult Dr. Bonilla consult SCDs for DVT prophylaxis Check labs in a.m. Incentive spirometer Nebulizer treatments Oxygen supplementation DC planned for tomorrow to [place]? Slow recovery Reason Hospital Visit/Course CC: Left hip fracture HPI: This is a 80yoWF pt of Dr. Jerzy Cote in [place] but now Dr. Jeffers since she has been at [facility] that presented to ER by ambulance after a fall and sustained left hip fracture but she heard her hip snap before the fall which makes this suspicious for lung cancer mets or at the very least osteoporosis. Pt has hx of lung CA and CAD so it is concerning that this could be related to CA process. Patient Interview: Pt states that she moved to [facility] in the middle of May, but states that she has not been there an entire month yet. Pt states that she previously broke her right arm, and took the cast off yesterday in [place]. Upon returning to [place], pt states that her hip popped and she fell. Pt states that she had CA in left lung, and a section was removed in March of 2015. Oncologist is Dr. Fairbanks and she sees him every three months. Pt denies smoking, and quit 28 years ago. 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 Pt's son lives in [place]. Physical exam stable. Scribed by Altaf Weinberg under the direct supervision of Dr. Meyer. Note from 08/08/16 medical office worker: Pt needs to get back to her environment. SW Review: Pt came from [facility]. Pt can be DC today. Patient Interview: Pt states she is hurting bad today. Pt states the pain med has not started working yet. Pt was told that she will be able to be DC to [facility] today. Pt thought she was not able to go back because her insurance was not going to cover her. Pt states she does not want to be moved to [facility] because they have and old van that shakes. Pt does not want to go to therapy at [facility] because it is downstairs, but they have an elevator. Pt states she gets sore during rehab and was encouraged to take a pain med with food. Pt asked if she could take an ambulance back. Scribed by Kadeem Pacheco under the direct supervision of Dr. Meyer. No fever, vital signs stable, pleasant, much improved, sitting in chair Regular rate and rhythm, clear to auscultation bilaterally, no wheezing no tachypnea No edema Hospital course: Patient overall had an uneventful hospital course she was hospitalized after she suffered a fall at the nursing facility the afternoon after she had her right arm cast removed after she had sustained a fracture from a fall that resulted in [facility] fpc placement and she was subsequently seen by Dr. Saha she was stabilized and underwent an uncomplicated hip fracture repair which resulted in postop anemia of hemoglobin of 6.6 that received 2 units of packed red blood cells and returned hemoglobin to a satisfactory level. Overall she did well had no complications maintained on nebulizer treatments and was stable from a medical standpoint and orthopedic standpoint considering the return no acute issues so she was discharged back to the fpc where she came from to continue skilled therapy but she was having difficulty coping with the realization of discharge and multiple people including social work and physical therapy tariff counsel her on how well she was doing and how successful she was going to be when returning back to the fpc in familiar surroundings but overall patient was displeased with the fact that she was being discharged not able to stay in the hospital for several weeks. I did have this conversation with her nurse who agreed with medical stability and everything was arranged for discharge even though she verbally disagreed with me multiple times during the conversation and everything was done to try to support this patient and returned back to the fpc to continue her recovery there. Discharge Summary Discharge Physical Examination Allergies: Coded Allergies: latex (Verified Allergy, Mild, RASH, 08/06/16) strawberry (Verified Allergy, Unknown, 08/05/16) Vitals & I&Os Vital Signs Date Time Temp Pulse Resp B/P (MAP) Pulse Ox O2 Delivery O2 Flow Rate FiO2 08/08/16 09:54 93 08/08/16 08:30 97.1 102 20 184/83 Room Air 08/06/16 16:00 2.00 Hospital Course Labs (last 24 hrs) Laboratory Tests 08/08/16 06:20: White Blood Count 12.5H, Red Blood Count 3.39L, Hemoglobin 9.5#L, Hematocrit 28L , Mean Corpuscular Volume 84, Mean Corpuscular Hemoglobin 28, Mean Corpuscular Hemoglobin Concent 34, Red Cell Distribution Width 16.7H, Platelet Count 230, Mean Platelet Volume 9.9, Prothrombin Time 16.3H, INR Comment 1.3, Sodium Level 136, Potassium Level 4.2, Chloride Level 108H, Carbon Dioxide Level 22, Anion Gap 6, Blood Urea Nitrogen 13, Creatinine 0.57L, Estimat Glomerular Filtration Rate > 60, BUN/Creatinine Ratio 23, Glucose Level 115H, Calcium Level 7.7L 08/08/16 11:35: Lab Scanned Report Transfusion Reaction Form Microbiology 08/06/16 MRSA Screen - Final, Complete MRSA not isolated Pending Labs Laboratory Tests 08/08/16 06:20: White Blood Count 12.5, Red Blood Count 3.39, Hemoglobin 9.5, Hematocrit 28, Mean Corpuscular Volume 84, Mean Corpuscular Hemoglobin 28, Mean Corpuscular Hemoglobin Concent 34, Red Cell Distribution Width 16.7, Platelet Count 230, Mean Platelet Volume 9.9, Prothrombin Time 16.3, INR Comment 1.3, Sodium Level 136, Potassium Level 4.2, Chloride Level 108, Carbon Dioxide Level 22, Anion Gap 6, Blood Urea Nitrogen 13, Creatinine 0.57, Estimat Glomerular Filtration Rate > 60, BUN/Creatinine Ratio 23, Glucose Level 115, Calcium Level 7.7 08/08/16 11:35: Lab Scanned Report Transfusion Reaction Form Discharge Home Medications: Active Scripts Active Tramadol HCl 50 Mg Tablet 50 Mg PO Q12H PRN Lortab 10-325 mg Tablet (Hydrocodone/Acetaminophen) 1 Each Tablet 1 Tab PO Q6H PRN Reported Voltaren (Diclofenac Sodium) 100 Gm Gel..gram. TP TID LOWER EXTREMETIES: 4G 3X DAILY MAX 16G PER JOINT PER DAY UPPER EXTREMETIES: 2G 3X DAILY MAX 8G PER JOINT PER DAY TOTAL BODY DOSE MAX 32G/DAY Vitamin E (Vitamin E Acetate) 400 Unit Capsule 400 Unit PO HS Vitamin D3 (Cholecalciferol (Vitamin D3)) 1,000 Unit Tablet 1,000 Unit PO HS Vision Vitamins (Beta-Carotene(A) W-C & E/Min) 1 Each Tablet 1 Tab PO HS Verapamil ER (Verapamil HCl) 240 Mg Tablet.er 240 Mg PO BID Simvastatin 80 Mg Tablet 80 Mg PO HS Plavix (Clopidogrel Bisulfate) 75 Mg Tablet 75 Mg PO DAILY Oxybutynin Chloride ER (Oxybutynin Chloride) 10 Mg Tab.er.24 20 Mg PO DAILY TAKES 2 (10MG) TABLETS Nexium (Esomeprazole Magnesium) 20 Mg Capsule.dr 20 Mg PO BID Mylanta Suspension (Al Hydrox/Mg Hydrox/Simethicone) 30 Ml Oral.susp 15 Ml PO Q4H PRN Lidoderm (Lidocaine) 700 Mg Adh..patch 3 Patch TP DAILY APPLY TO LEFT SHOULDER, RIGHT SHOULDER, AND T5-T12/THORACIC SPINE REMOVE AT 1930 Levothyroxine Sodium 50 Mcg Tablet 50 Mcg PO DAILY Garlic 1,000 Mg Capsule 1,000 Mg PO HS Enalapril Maleate 10 Mg Tablet 10 Mg PO DAILY Colace (Docusate Sodium) 100 Mg Capsule 100 Mg PO BID Bisacodyl 10 Mg Supp.rect 10 Mg RC DAILY PRN Biotin 1,000 Mcg Tablet 1,000 Mcg PO HS Aspirin EC (Aspirin) 81 Mg Tablet.dr 81 Mg PO HS Instructions to patient/family Please see electonic discharge instructions given to patient. Clinical Quality Measures DVT/VTE Risk/Contraindication: Risk Factor Score Per Nursin RFS Level Per Nursing on Admit: 4+=Very High ROBIN MEYER DO Aug 08, 2016 11:34
[2016-08-08] MEDS ORDERED: ALPRAZolam 0.25 MG (XANAX) TAB PO ONE (12:30)
--- NOTE | 2016-08-08 12:30 | Physical Therapy Daily Note ---
PT Daily Note-Current Subjective Patient states, "I will exercise but I won't stand up." Pain Numeric Pain Scale: 10-Worst Possible Pain Location: Left Location Body Site: Hip Pain Description: Acute, Sharp Mental Status Patient Orientation: Person, Time, Situation Transfers Functional Naylor Measure 0=Not Assessed/NA 4=Minimal Assistance 1=Total Assistance 5=Supervision or Setup 2=Maximal Assistance 6=Modified [place] 3=Moderate Assistance 7=Complete IndependenceIRFPAI Quality Coding Scale 6 Independent with activity with or without an assistive device 5 Patient requires set up or clean up by helper. Patient completes activity by themselves 4 Supervision or touching assist (CGA). Leonard provide cues , steadying assist 3 The helper provides less than half the effort to complete the activity 2 The helper provides more than half the effort to complete the activity 1 Dependent. The helper does all the effort to complete an activity 7 Patient refused to complete or attempt activity 9 The patient did not perform the activity before the current illness or injury 88 Not attempted due to Medical conditions or safety concerns Exercises Supine Ex: Ankle pumps, Heel Slides, Hip abd/add Supine Reps: 10 (AAROM left LE ) Seated Therapy Exercises: Ankle pumps, Long arc quads Seated Reps: 10 (AROM bilateral LE) Assessment Patient tolerated exercises in recliner with LE's elevated and down. Patient will require time to recovery due to inability to weight bear through right UE and TTWB left LE. PT Glass Decorator Goals Glass Decorator Goals PT Long-Term Goals Time Frame: Aug 15, 2016 Transfers (B,C,W/C) (FIM): 2 Gait (FIM): 1 Gait distance (FIM): 1=up to 49 ft Distance: 5' Gait Level of Assist: 2 Gait Assistive Device: FWW (TTWB left LE) PT Plan Treatment/Plan Treatment Plan: Discontinue PT Treatment Plan: Bed Mobility, Education, Functional Activity [place], Functional Strength, Gait, Safety, Therapeutic Exercise, Transfers Treatment Duration: Aug 15, 2016 Visits Per Week: 11 Discharge Recommendations Therapy D/C Recommendations: Prison (TCU/NH) Time/GCodes Time In: 1110 Time Out: 1120 Total Billed Treatment Time: 10 Total Billed Treatment 1 visit EX 10 min ACE MARTIN PT Aug 08, 2016 12:30
--- NOTE | 2016-08-11 10:38 | ECHOCARDIOGRAPHY REPORT ---
PROCEDURE PHYSICIAN: DANE CARROLL DATE OF PROCEDURE: 08/07/2016 TWO DIMENSIONAL ECHOCARDIOGRAM REPORT PRIMARY PHYSICIAN: Dr. Jeffers OTHER PHYSICIAN: Dr. Saha REFERRING PHYSICIAN: ORDERING PHYSICIAN: Valeria Thompson APRN INDICATION FOR THE PROCEDURE: 1. History of coronary artery disease. 2. Hip fracture. MEASUREMENTS DERIVED VALUES LV DIAMETER (LAX) NORMALS NORMALS Diastolic 3.9 (3.6-5.2) Eject. Fract. (60%+/-6%) Systolic (2.3-3.9) Diastolic Vol. % Shortening (0.22-0.42) Systolic Vol. Aortic Root 2.5 IVS THICKNESS Diastolic 0.9 (0.6-1.1) LVPW THICKNESS Diastolic 1 (0.6-1.1) LA DIAMETER Systolic 2.8 (2.1-3.7) DESCRIPTION: Two-dimensional echocardiography shows well preserved global left ventricular systolic function without distinct regional wall motion abnormality. Aortic, mitral and tricuspid valve leaflets show good leaflet excursion. There is no significant pericardial effusion. Doppler imaging did not show any significant valvular regurgitation or stenosis. Pulmonary artery systolic pressure is estimated to be approximately 35 mmHg. There is no evidence of significant intracardiac shunt on this transthoracic echocardiographic study. Inferior vena cava does not appear to be dilated. It does seem to have inspiratory collapse. Incidental note is made of some pleural effusion. CONCLUSIONS: 1. Normal global left ventricular systolic function with an ejection fraction of approximately 60%. 2. No significant valvular regurgitation or stenosis. 3. Pulmonary artery systolic pressure is estimated to be approximately 35 mmHg. 4. Incidental note is made of some pleural effusion. Job ID: [id number] Dictated Date: 08/11/2016 09:35:04 Tile Sorter Date: 08/11/2016 10:26:32 / tbk
== END 2016-08-08 14:00 | DRG 481 ==
LOC: DELPENDDIS → ER 21:28 → 4TH 22:30
PROVIDERS: ADMIT Orthopaedic Surgery; ATTEND Orthopaedic Surgery
PROC: 0QS706Z Reposition Left Upper Femur with Intramedullary Internal Fixation Device, Open Approach (ICD-10-PCS; principal; 2016-08-06 17:33)
DX: M80.052A Age-related osteoporosis with current pathological fracture, left femur, initial encounter for fracture (principal); M84.652A Pathological fracture in other disease, left femur, initial encounter for fracture; M87.9 Osteonecrosis, unspecified; D62 Acute posthemorrhagic anemia; I10 Essential (primary) hypertension; G62.9 Polyneuropathy, unspecified; I25.10 Atherosclerotic heart disease of native coronary artery without angina pectoris; J44.9 Chronic obstructive pulmonary disease, unspecified; D64.9 Anemia, unspecified; E78.00 Pure hypercholesterolemia, unspecified; N32.81 Overactive bladder; R32 Unspecified urinary incontinence; K21.9 Gastro-esophageal reflux disease without esophagitis; K59.09 Other constipation; M19.91 Primary osteoarthritis, unspecified site; E03.9 Hypothyroidism, unspecified; F03.90 Unspecified dementia, unspecified severity, without behavioral disturbance, psychotic disturbance, mood disturbance, and anxiety; Z85.118 Personal history of other malignant neoplasm of bronchus and lung; Z87.891 Personal history of nicotine dependence; Z90.2 Acquired absence of lung [part of]; Z99.81 Dependence on supplemental oxygen; Z86.73 Personal history of transient ischemic attack (TIA), and cerebral infarction without residual deficits; Z79.02 Long term (current) use of antithrombotics/antiplatelets
CPT/HCPCS: 36415; 51702; 71010; 72170; 73502; 80048; 80053; 85025; 85027; 85610; 85730; 86850; 86900; 86901; 86920; 87081; 88307; 88341; 88342; 93005; 93306; 94640; 94760; 96361; 96374; 96375